=== PATIENT | male | born 1955 | race African-American/Black ===

== ENCOUNTER 2020-03-27 16:14 | IRF | payer MEDICARE, SELFPAY ==
[2020-03-27 16:10] VITALS: BP 170/82; PULSE 54; RESP 17; TEMP 36.3; O2SAT 99; BMI 32.4
--- NOTE | 2020-03-27 16:23 | ADMGEN ---
This patient, Patrick Garcia, was admitted to [facility] Room 225-01. Patient/family oriented to hospital policies and general routines including ID bracelet, bed and alarms, visiting hours, pain management, procedures, bathroom and other care routines, personal items, smoking policy, room service/diet, and visiting hours. Valuables list has been completed. Information on how to activate the Rapid Response Team has been discussed. Patient/Family are encouraged to report perceived risks to care and to ask questions if they do not understand what they are told or what they should do.
[2020-03-27 17:24] LABS: Glucose Point of Care 98 (65-105)
[2020-03-27] MEDS: PREGABALIN 50 MG CAPSULE PO (18:25)
[2020-03-27] MEDS: metFORMIN HCL XR 500 MG TAB.SR.24H PO (18:25)
[2020-03-27] MEDS: INSULIN DETEMIR 100 UNITS/ML 25 UNITS SUB-Q (20:35)
[2020-03-27] MEDS: MONTELUKAST SODIUM 10 MG TABLET PO (20:38)
[2020-03-27 21:08] LABS: Glucose Point of Care 206 (65-105)
[2020-03-27 22:00] VITALS: BP 147/60; PULSE 65; RESP 19; TEMP 36.9; O2SAT 98
[2020-03-28 04:49] LABS: Basophils Percent Auto 0.5 % (0.2-1.2); Eosinophils Absolute Auto 0.2 K/mm3 (0-0.3); Hematocrit 44.6 % (42.0-52.0); Immature Granulocyte Absolute 0.03 K/mm3 (0.00-0.031); Immature Granulocyte Percent A 0.5 % (0-0.5); Lymphocytes Absolute Auto 1.01 K/mm3 (0.9-3.2); Lymphocytes Percent Auto 17.9 % (18.3-44.2); Mean Corpuscular HGB Conc 31.4 g/dl (32-36); Mean Corpuscular Hemoglobin 26.5 pg (26-34); Mean Corpuscular Volume 84.5 fl (80-100); Mean Platelet Volume 9.6 fl (7.4-10.4); Monocytes Absolute Auto 0.8 K/mm3 (0.1-0.6); Neutrophils Absolute Auto 3.6 K/mm3 (1.3-6.7); Neutrophils Percent Auto 64.1 % (45.5-73.1); Platelet Count Result 153 k/mm3 (150-375); Red Blood Count 5.28 M/mm3 (4.6-6.20); Red Cell Distribution Width 14.3 % (11.5-14.5); White Blood Count 5.6 K/mm3 (4.5-10.0)
[2020-03-28 05:02] LABS: Blood Urea Nitrogen 27 mg/dL (9-20); Calcium 9.3 mg/dL (8.4-10.2); Carbon Dioxide 28 mmol/L (22-30); Chloride 106 mmol/L (98-107); Cholesterol 144 mg/dL (0-200); Estimated CRCL calculation 76 ml/min; Estimated Glomerular Filt Rate > 60; Glucose 99 mg/dL (75-110); HDL Direct 28 mg/dL; Potassium 3.8 mmol/L (3.4-5.0); Sodium 139 mmol/L (137-145); Triglycerides 72 mg/dL (<150)
[2020-03-28 05:13] LABS: LDL Cholesterol Direct 86 mg/dL
[2020-03-28 06:00] VITALS: BP 149/69; PULSE 54; RESP 18; TEMP 36.4; O2SAT 99
[2020-03-28 06:56] LABS: Glucose Point of Care 73 (65-105)
[2020-03-28] MEDS: metFORMIN HCL XR 500 MG TAB.SR.24H PO ×2 (08:30→17:03)
[2020-03-28] MEDS: ROSUVASTATIN 10 MG TABLET 40 MG PO (09:27)
[2020-03-28] MEDS: PREGABALIN 50 MG CAPSULE PO ×3 (09:27→17:06)
[2020-03-28] MEDS: AMLODIPINE BESYLATE 5 MG TABLET 10 MG PO (09:27)
[2020-03-28] MEDS: CLOPIDOGREL BISULFATE 75 MG TABLET PO (09:27)
[2020-03-28] MEDS: FUROSEMIDE 40 MG TABLET PO (09:27)
[2020-03-28] MEDS: SPIRONOLACTONE 25 MG TABLET PO (09:28)
[2020-03-28] MEDS: INSULIN DETEMIR 100 UNITS/ML 25 UNITS SUB-Q ×2 (09:29→20:20)
[2020-03-28] MEDS: FLUTICASONE PROPIONATE 0.05% NA SPR 16 GM BTL (*BKC) 1 SPRAY NASAL (09:29)
[2020-03-28] MEDS: LORATADINE 10 MG TABLET PO (09:29)
--- NOTE | 2020-03-28 10:00 | WPDREHABHP ---
H&P: HPI History of Present Illness Chief complaint: CVA Narrative: Patrick Garcia is a 65 year old male HISTORY OF PRESENT ILLNESS: The patient's primary rehab impairment category is 0 1/stroke The etiologic diagnosis is acute left pontine infarction I saw this patient [id number] on March 28, 2020 at 10:30 a.m. The patient is a 65-year-old the male with past medical history of coronary artery disease status post PCI, hypertension, diabetes mellitus type 2, obstructive sleep apnea, and rheumatoid arthritis presented to [facility] on March 22, 2020 complaining of dizziness, gait imbalance, slurring of the speech and dysphagia. The patient reported waking up 2 days ago with symptoms. He was already taking Plavix and a statin. He is allergic to aspirin. He was continued on his home medication and further testing was ordered. Neurology was consulted. Initial head CT on March 22 showed no acute intracranial process. Hemoglobin A1c was 13 diabetic Education was consulted regarding elevated A1c. Repeat head CT on March 24, 2020 showed left paramedian pontine acute infarct. CTA revealed severe stenosis of the basilar artery at the level of the superior aspect of the pontine infarct with an incidental thyroid nodule finding. The patient needs to follow-up with the primary care physician to address the new thyroid nodule finding. No high-degree carotid stenosis shown carotid Doppler. Echocardiogram showed an ejection fraction 58% and no mural thrombus, valvular vegetation or PFO. Neurology recommended continuing Plavix and statin and evaluation by PT OT and speech. The patient will need vascular Neurology consult on an outpatient basis within 3 weeks. His blood pressure medication were decreased it to allow better perfusion with higher blood pressure. Physical examination continues to reveal impaired balance decreased gross motor controlled and right-sided hemiparesis. The patient has passed is swallowing study and will be on a regular consistency diet. The patient will be discharged to rehab on Lovenox for DVT prophylaxis. Therapy was initiated at the acute care facility and the patient transferred to us from [facility] on March 27, 2020 on FALLS OR SURGERIES: The patient has had no major surgeries in the 100 days prior to admission. They had falls in the past year. They had no falls with injury in the past year. PAST MEDICAL HISTORY: congestive heart failure, rheumatoid arthritis, hyperlipidemia, hypertension, osteoarthritis, tension headache. PAST SURGICAL HISTORY: PCI SOCIAL HISTORY: the patient lives with his 13-year-old son in a 1 level house with the [employer] tree. He was completely independent and driving prior. He had no assistive device. Patient fell on March 22, 2020 at the hospital. No major surgeries in the past and days. Never smoker no alcohol or drug abuse FAMILY HISTORY: mother with diabetes mellitus hypertension and rheumatoid arthritis. Father with heart disease hypertension. Brother with hypertension. Family history of osteoarthritis PRIOR LEVEL OF FUNCTION: Eating was INDEPENDENT Oral Care was INDEPENDENT Toileting Hygiene was INDEPENDENT Shower/Bathing was INDEPENDENT Upper Body Dressing was INDEPENDENT Lower Body Dressing was INDEPENDENT Donning/[place] Footwear was INDEPENDENT Rolling Left and Right was INDEPENDENT Sit to Lying was INDEPENDENT Lying to Sitting was INDEPENDENT Sit to Stand was INDEPENDENT Bed to Chair Transfers was INDEPENDENT Toilet Transfers was INDEPENDENT Walking was INDEPENDENT 999 feet with NO DEVICE Wheelchair Mobility was NOT APPLICABLE PRIOR TO ADMISSION Stairs were INDEPENDENT CURRENT LEVEL OF FUNCTION: Eating was independent Oral Care was supervision or touch assistance Toileting Hygiene was substantial/maximal assistance Shower/Bathing was substantial/maximal assist Upper Body Dressing was partial/moderate assistance Lower Body D
[2020-03-28 11:21] LABS: Glucose Point of Care 223 (65-105)
[2020-03-28 12:14] VITALS: BMI 32.4
[2020-03-28] MEDS: INSULIN ASPART (*BKC) 100 UNITS/ML SUB-Q (12:27)
[2020-03-28] MEDS: ENOXAPARIN 40 MG/0.4 ML SYRINGE SUB-Q (12:28)
[2020-03-28 14:00] VITALS: BP 159/63; PULSE 68; RESP 20; TEMP 36.6; O2SAT 98
[2020-03-28 17:26] LABS: Glucose Point of Care 147 (65-105)
--- NOTE | 2020-03-28 17:28 | PC.NURSE ---
spoke to patient regarding jardiance this shift. pt states his son was going to look for medication and if he found it he would bring it to us. updated.
[2020-03-28] MEDS: MONTELUKAST SODIUM 10 MG TABLET PO (20:23)
[2020-03-28 21:24] VITALS: BP 145/72; PULSE 59; RESP 16; TEMP 36.1; O2SAT 99
[2020-03-28 21:56] LABS: Glucose Point of Care 230 (65-105)
[2020-03-29 06:00] VITALS: BP 134/76; PULSE 96; RESP 16; TEMP 36.5; O2SAT 98
[2020-03-29 07:03] LABS: Glucose Point of Care 80 (65-105)
[2020-03-29] MEDS: FLUTICASONE PROPIONATE 0.05% NA SPR 16 GM BTL (*BKC) 1 SPRAY NASAL (09:16)
[2020-03-29] MEDS: PREGABALIN 50 MG CAPSULE PO ×3 (09:17→17:21)
[2020-03-29] MEDS: ENOXAPARIN 40 MG/0.4 ML SYRINGE SUB-Q (09:17)
[2020-03-29] MEDS: FUROSEMIDE 40 MG TABLET PO (09:17)
[2020-03-29] MEDS: SPIRONOLACTONE 25 MG TABLET PO (09:17)
[2020-03-29] MEDS: AMLODIPINE BESYLATE 5 MG TABLET 10 MG PO (09:17)
[2020-03-29] MEDS: LORATADINE 10 MG TABLET PO (09:17)
[2020-03-29] MEDS: ROSUVASTATIN 10 MG TABLET 40 MG PO (09:17)
[2020-03-29] MEDS: CLOPIDOGREL BISULFATE 75 MG TABLET PO (09:17)
[2020-03-29] MEDS: metFORMIN HCL XR 500 MG TAB.SR.24H 1000 MG PO (09:30)
[2020-03-29] MEDS: INSULIN DETEMIR 100 UNITS/ML 25 UNITS SUB-Q ×2 (09:34→20:34)
--- NOTE | 2020-03-29 10:46 | RPD ---
INDIVIDUALIZED PLAN OF CARE FOR Patrick Garcia Brief Synthesis of Pre-Admission Screen, Post-Admission Evaluation and Therapy Evaluations: The patient presents to rehab with acute left pontine infarction. Comorbidities include congestive heart failure, rheumatoid arthritis, hyperlipidemia, hypertension, osteoarthritis, tension headache, gait instability, impaired balance, uncontrolled diabetes mellitus, mild troponemia, obstructive sleep apnea, severe basilar artery stenosis, 1.7 cm thyroid nodule. The patient requires physician services for neurology services, medical oversight, and coordination of care. Emotional needs will be monitored as depression is a common sequelae of stroke. The patient needs physician monitoring and treatment of hypertension, diabetes mellitus, monitoring for adverse reactions to new medications, monitoring of infection, and pain control. The patient requires nursing services for frequent neuro checks, anticoagulation therapy, medication management and education, pressure relief and skin care management, monitoring of labs, diabetes management and education, and fall/safety precautions. Deficits include:ADLs, Balance, Endurance, Family Training/Education, Mobility, Pain Management, Safety, Strength, Transfers Director Of Security/Case Management for: Discharge Planning and Patient/Family Counseling Physical Therapy: 5 days per week for 90 minutes. Treatments may include: Therapeutic Exercise, Gait Training, Neuromuscular Re-education, Transfer Training, Community Reintegration, Bed Mobility, Patient/Family Education, Wheelchair Mobility Group Therapy/Concurrent Therapy Rationales: -Improve attention span during functional activities in a distracted environment. -Enhance problem solving and/or adequate judgment skills during functional activities in a distracted environment. -Promote increased safety awareness in a distracted environment to reduce fall risk with functional tasks, transfers, and ambulation to allow a more safe, self-sufficient return to the home environment. -Improve dynamic balance skills to promote safety and independence with functional activities in a distracted environment for maximum gain. Occupational Therapy: 5 days per week for 90 minutes. Treatments may include: Therapeutic Exercise, Therapeutic Activity, Cognitive Training, Self-Care Transfer Training, Community Reintegration, Home Management, Patient/Family Education, Wheelchair Mobility Training, Energy Conservation Training Group Therapy/Concurrent Therapy Rationales: -Allow therapist to observe and teach generalization and carry-over of skills learned in individual therapy. -Enhance problem solving and sequencing skills during therapeutic activities in a distracted environment. -Promote increased safety awareness in a realistic setting to reduce fall risk with functional tasks due to visual and verbal distractions. -Increase functional level with ADLs, ADL transfers and use of adaptive equipment through therapeutic activities with others while promoting safety to allow a more safe, self-sufficient return home. Medical Prognosis: Good Anticipated Length of Stay: 12 days Rehab Goals: Eating Goal: 06-Independent Oral Hygiene Goal: 06-Independent Toileting Hygiene Goal: 06-Independent Shower/Bathe Self Goal: 04-Supervision or Touching Assistance Upper Body Dressing Goal: 05-Setup or Clean Up Assistance Lower Body Dressing Goal: 05-Setup or Clean Up Assistance Putting On/Taking Off Footwear Goal: 05-Setup or Clean Up Assistance Rolling Left and Right Goal: 06-Independent Sit to Lying Goal: 06-Independent Lying to Sitting on Side of Bed Goal: 06-Independent Sit to Stand Goal: 06-Independent Chair/Geg-jj-Kyqqm Transfer Goal: 06-Independent Toilet Transfer Goal: 06-Independent Car Transfer Goal: 06-Independent Walk 10' Goal: 06-Independent Walk 50' with Two Turns Goal: 06-Independent Walk 150' Goal: 06-Independent Walk 10' on Uneven Surface Goal: 06-Independ
[2020-03-29 11:46] LABS: Glucose Point of Care 147 (65-105)
--- NOTE | 2020-03-29 13:59 | WPDNEURORHBP ---
Subjective Date/time seen: 03/29/20 13:59 Interval history: this 65-year-old gentleman is here after having had the brainstem stroke which has left him with the moderately severe right-sided hemiparesis with mild dysarthria otherwise no double vision no blurred vision or difficulty swallowing or eating denies any chest pain shortness of breath fever chills or sore throat he also does have underlying rheumatoid arthritis for which he is on methotrexate also is a diabetic and non month multiple anti diabetic medication Review of Systems Review of Systems: All systems reviewed & are unremarkable except as noted in HPI and below Functional Status Ambulation Ability Ability to Ambulate 10 Feet: Moderate Assistance X 1 Ability to Ambulate 50 Feet With 2 Turns: Moderate Assistance X 1 Ambulation Assistive Devices: Cane, Dajuan Transfers Ability Ability to Transfer In/Out of Chair: Moderate Assistance X 1 Exam Const: General: comfortable and no acute distress HENMT: General nose exam: Normal nares present Mouth: Yes moist mucous membranes Eyes: General: appearance normal, both eyes and all related structures Neck: Neck: supple and no JVD Resp: Effort & Inspection: normal respiratory effort Auscultation: clear to auscultation bilaterally Cardio: Rate: regular rate Rhythm: regular rhythm GI: GI Palp: Yes Soft to palpation Auscultation: normal bowel sounds Skin: General skin exam: normal color and no rashes or lesions noted Neuro: Other: patient is awake and alert and well oriented time place and person has a mild dysarthria and right-sided moderately severe hemiparesis with evidence of peripheral neuropathy Extrem: General: normal to inspection Psych: Mental Status: mental status grossly normal Objective Data Vital Signs Vital Signs: Vital Signs - 24 hr 03/28/20 14:00 03/28/20 21:24 03/29/20 06:00 Temperature 36.6 C 36.1 C L 36.5 C Pulse Rate 68 59 L 96 Respiratory Rate 20 16 16 Blood Pressure 159/63 H 145/72 H 134/76 Pulse Oximetry 98 99 98 Intake/Output Intake/Output: Intake & Output 03/26/20 03/27/20 03/28/20 03/29/20 23:59 23:59 23:59 23:59 Intake Total 240 720 480 Balance 240 720 480 Meds/Results Medications: Active Medications Generic Name Dose Route Start Last Admin Trade Name Freq PRN Reason Stop Dose Admin Hydrocodone Bitart/Acetaminophen 1 tab 03/27/20 17:06 03/28/20 17:04 [place] 7.5-325 Mg PO 1 tab BID PRN Administration Pain Amlodipine Besylate 10 mg 03/28/20 09:00 03/29/20 09:17 Norvasc PO 10 mg DAILY JOVITA Administration Clopidogrel Bisulfate 75 mg 03/28/20 09:00 03/29/20 09:17 Plavix PO 75 mg DAILY JOVITA Administration Dextrose 12.5 gm 03/27/20 16:32 Dextrose 50% Syringe IV PUSH PRN PRN Hypoglycemia Protocol Enoxaparin Sodium 40 mg 03/28/20 11:00 03/29/20 09:17 Lovenox SUB-Q 40 mg DAILY JOVITA Administration Fluticasone Propionate 1 spray 03/29/20 10:56 Flonase 0.05% Nasal [place] NASAL DAILY PRN seasonal allergies Furosemide 40 mg 03/28/20 09:00 03/29/20 09:17 Lasix Tablet PO 40 mg DAILY JOVITA Administration Glucagon 1 mg 03/27/20 16:32 Glucagon For Inj IM PRN PRN Hypoglycemia Protocol Glucose 15 gm 03/27/20 16:32 Glutose 15 PO PRN PRN Hypoglycemia Protocol Dextrose 1,000 mls @ 100 mls/hr 03/27/20 16:32 Dextrose 5% 1,000 Ml IVPB PRN PRN Hypoglycemia Protocol Insulin Aspart 4 - 8 units 03/28/20 08:00 03/29/20 11:43 Novolog SUB-Q Not Given TIDWM [facility] Protocol Insulin Detemir 25 units 03/27/20 21:00 03/29/20 09:34 Levemir SUB-Q 25 units Q12HR JOVITA Administration Loratadine 10 mg 03/28/20 09:00 03/29/20 09:17 Claritin PO 10 mg QAM JOVITA Administration Metformin HCl 1,000 mg 03/29/20 08:00 03/29/20 09:30 Glucophage Xr PO 1,000 mg DAILY@0800 JOVITA Administration Methotrexat
[2020-03-29 14:00] VITALS: BP 149/69; PULSE 64; RESP 16; TEMP 36.1; O2SAT 98
[2020-03-29 17:42] LABS: Glucose Point of Care 125 (65-105)
[2020-03-29] MEDS: MONTELUKAST SODIUM 10 MG TABLET PO (20:34)
[2020-03-29 21:39] LABS: Glucose Point of Care 236 (65-105)
[2020-03-29 22:00] VITALS: BP 149/79; PULSE 68; RESP 16; TEMP 36.4; O2SAT 100
[2020-03-30 06:00] VITALS: BP 149/69; PULSE 60; RESP 18; TEMP 36.5; O2SAT 98
[2020-03-30 06:51] LABS: Glucose Point of Care 127 (65-105)
[2020-03-30 08:00] VITALS: PULSE 60; RESP 18; O2SAT 98
[2020-03-30] MEDS: CLOPIDOGREL BISULFATE 75 MG TABLET PO (09:35)
[2020-03-30] MEDS: ENOXAPARIN 40 MG/0.4 ML SYRINGE SUB-Q (09:35)
[2020-03-30] MEDS: LORATADINE 10 MG TABLET PO (09:36)
[2020-03-30] MEDS: FUROSEMIDE 40 MG TABLET PO (09:36)
[2020-03-30] MEDS: AMLODIPINE BESYLATE 5 MG TABLET 10 MG PO (09:36)
[2020-03-30] MEDS: metFORMIN HCL XR 500 MG TAB.SR.24H 1000 MG PO (09:36)
[2020-03-30] MEDS: INSULIN DETEMIR 100 UNITS/ML 25 UNITS SUB-Q ×2 (09:37→20:49)
[2020-03-30] MEDS: SPIRONOLACTONE 25 MG TABLET PO (09:38)
[2020-03-30] MEDS: ROSUVASTATIN 10 MG TABLET 40 MG PO (09:38)
[2020-03-30] MEDS: PREGABALIN 50 MG CAPSULE PO ×3 (09:40→17:09)
--- NOTE | 2020-03-30 11:53 | PHAR ---
HOME MED VERIFIED JARDIANCE 25MG 1 TABLET DAILY EVERY MORNING
[2020-03-30 12:07] LABS: Glucose Point of Care 131 (65-105)
--- NOTE | 2020-03-30 12:47 | WPDNEURORHBP ---
Subjective Date/time seen: S/P brainstem stroke with sever right hemiparesis ,dysarthria and underlying Rheumatoid arthritis,has no visual or swallowing difficulties Review of Systems Review of Systems: All systems reviewed & are unremarkable except as noted in HPI and below Functional Status Ambulation Ability Ability to Ambulate 10 Feet: Moderate Assistance X 1 Ability to Ambulate 50 Feet With 2 Turns: Moderate Assistance X 1 Ambulation Assistive Devices: Walker, Dajuan Transfers Ability Ability to Transfer In/Out of Chair: Moderate Assistance X 1 Exam Const: General: cooperative, comfortable and no acute distress HENMT: Head: normal to inspection General nose exam: No nasal discharge present Mouth: Yes Normal oral and palatal mucosa present Eyes: General: appearance normal, both eyes and all related structures Neck: Neck: full ROM Resp: Effort & Inspection: normal respiratory effort Auscultation: clear to auscultation bilaterally Cardio: Rate: regular rate Rhythm: regular rhythm GI: Auscultation: normal bowel sounds Skin: General skin exam: normal color and no rashes or lesions noted Neuro: General: patient oriented x3 Cranial nerves: Yes Equal, round and reactive pupils present, Yes Nystagmus not present and Yes Normal hearing present Cognition (Neuro): normal cognition Speech: dysarthria Gait exam (Neuro): Unable to assess gait Motor exam (neuro): Abnormal motor strength present (right hemiparesis) Sensory Exam: Abnormal lower extremity sensory exam (decreased distally) Psych: Appearance: grossly normal Objective Data Vital Signs Vital Signs: Vital Signs - 24 hr 03/29/20 14:00 03/29/20 22:00 03/30/20 06:00 Temperature 36.1 C L 36.4 C 36.5 C Pulse Rate 64 68 60 Respiratory Rate 16 16 18 Blood Pressure 149/69 H 149/79 H 149/69 H Pulse Oximetry 98 100 98 03/30/20 08:00 Temperature Pulse Rate 60 Respiratory Rate 18 Blood Pressure Pulse Oximetry 98 Intake/Output Intake/Output: Intake & Output 03/27/20 03/28/20 03/29/20 03/30/20 23:59 23:59 23:59 23:59 Intake Total 240 720 720 240 Balance 240 720 720 240 Meds/Results Medications: Active Medications Generic Name Dose Route Start Last Admin Trade Name Freq PRN Reason Stop Dose Admin Hydrocodone Bitart/Acetaminophen 1 tab 03/27/20 17:06 03/28/20 17:04 [place] 7.5-325 Mg PO 1 tab BID PRN Administration Pain Amlodipine Besylate 10 mg 03/28/20 09:00 03/30/20 09:36 Norvasc PO 10 mg DAILY JOVITA Administration Clopidogrel Bisulfate 75 mg 03/28/20 09:00 03/30/20 09:35 Plavix PO 75 mg DAILY JOVITA Administration Dextrose 12.5 gm 03/27/20 16:32 Dextrose 50% Syringe IV PUSH PRN PRN Hypoglycemia Protocol Enoxaparin Sodium 40 mg 03/28/20 11:00 03/30/20 09:35 Lovenox SUB-Q 40 mg DAILY JOVITA Administration Fluticasone Propionate 1 spray 03/29/20 10:56 Flonase 0.05% Nasal [place] NASAL DAILY PRN seasonal allergies Furosemide 40 mg 03/28/20 09:00 03/30/20 09:36 Lasix Tablet PO 40 mg DAILY JOVITA Administration Glucagon 1 mg 03/27/20 16:32 Glucagon For Inj IM PRN PRN Hypoglycemia Protocol Glucose 15 gm 03/27/20 16:32 Glutose 15 PO PRN PRN Hypoglycemia Protocol Dextrose 1,000 mls @ 100 mls/hr 03/27/20 16:32 Dextrose 5% 1,000 Ml IVPB PRN PRN Hypoglycemia Protocol Insulin Aspart 4 - 8 units 03/28/20 08:00 03/30/20 09:37 Novolog SUB-Q Not Given TIDWM JOVITA Protocol Insulin Detemir 25 units 03/27/20 21:00 03/30/20 09:37 Levemir SUB-Q 25 units Q12HR JOVITA Administration Loratadine 10 mg 03/28/20 09:00 03/30/20 09:36 Claritin PO 10 mg QAM JOVITA Administration Metformin HCl 1,000 mg 03/29/20 08:00 03/30/20 09:36 Glucophage Xr PO 1,000 mg DAILY@0800 JOVITA Administration Methotrexate 20 mg 04/01/20 09:00 Methotrexate Tab (*Chemo) PO Mo@090
[2020-03-30 14:00] VITALS: BP 142/62; PULSE 64; RESP 20; TEMP 36.3; O2SAT 97
[2020-03-30 16:56] LABS: Glucose Point of Care 148 (65-105)
[2020-03-30] MEDS: MONTELUKAST SODIUM 10 MG TABLET PO (20:41)
[2020-03-30 21:18] LABS: Glucose Point of Care 228 (65-105)
[2020-03-30 22:00] VITALS: BP 149/60; PULSE 58; RESP 16; TEMP 35.9; O2SAT 98
[2020-03-31 06:00] VITALS: BP 146/64; PULSE 57; RESP 16; TEMP 36; O2SAT 97
[2020-03-31 06:37] LABS: Glucose Point of Care 103 (65-105)
[2020-03-31 08:00] VITALS: PULSE 57; RESP 16; O2SAT 97
[2020-03-31] MEDS: CLOPIDOGREL BISULFATE 75 MG TABLET PO (09:05)
[2020-03-31] MEDS: ENOXAPARIN 40 MG/0.4 ML SYRINGE SUB-Q (09:06)
[2020-03-31] MEDS: AMLODIPINE BESYLATE 5 MG TABLET 10 MG PO (09:06)
[2020-03-31] MEDS: metFORMIN HCL XR 500 MG TAB.SR.24H 1000 MG PO (09:06)
[2020-03-31] MEDS: FUROSEMIDE 40 MG TABLET PO (09:07)
[2020-03-31] MEDS: LORATADINE 10 MG TABLET PO (09:07)
[2020-03-31] MEDS: SPIRONOLACTONE 25 MG TABLET PO (09:08)
[2020-03-31] MEDS: ROSUVASTATIN 10 MG TABLET 40 MG PO (09:08)
[2020-03-31] MEDS: PREGABALIN 50 MG CAPSULE PO ×3 (09:11→17:36)
[2020-03-31] MEDS: INSULIN DETEMIR 100 UNITS/ML 25 UNITS SUB-Q ×2 (09:13→20:46)
[2020-03-31 11:54] LABS: Glucose Point of Care 119 (65-105)
[2020-03-31 14:00] VITALS: BP 129/67; PULSE 72; RESP 20; TEMP 36.3; O2SAT 98
[2020-03-31 17:06] LABS: Glucose Point of Care 81 (65-105)
[2020-03-31] MEDS: MONTELUKAST SODIUM 10 MG TABLET PO ×2 (20:02→20:46)
[2020-03-31 20:58] LABS: Glucose Point of Care 120 (65-105)
[2020-03-31 22:00] VITALS: BP 137/76; PULSE 63; RESP 14; TEMP 36.9; O2SAT 99
[2020-04-01 05:16] LABS: Glucose Point of Care 114 (65-105)
[2020-04-01 06:00] VITALS: BP 144/82; PULSE 58; RESP 14; TEMP 36.8; O2SAT 99
[2020-04-01] MEDS: ENOXAPARIN 40 MG/0.4 ML SYRINGE SUB-Q (09:53)
[2020-04-01] MEDS: METHOTREXATE 2.5 MG TAB (*CHEMO) 20 MG PO (09:53)
[2020-04-01] MEDS: AMLODIPINE BESYLATE 5 MG TABLET 10 MG PO (09:54)
[2020-04-01] MEDS: metFORMIN HCL XR 500 MG TAB.SR.24H 1000 MG PO (09:54)
[2020-04-01] MEDS: FUROSEMIDE 40 MG TABLET PO (09:54)
[2020-04-01] MEDS: CLOPIDOGREL BISULFATE 75 MG TABLET PO (09:54)
[2020-04-01] MEDS: LORATADINE 10 MG TABLET PO (09:55)
[2020-04-01] MEDS: SPIRONOLACTONE 25 MG TABLET PO (09:56)
[2020-04-01] MEDS: ROSUVASTATIN 10 MG TABLET 40 MG PO (09:56)
[2020-04-01] MEDS: INSULIN DETEMIR 100 UNITS/ML 25 UNITS SUB-Q ×2 (09:57→20:55)
[2020-04-01] MEDS: PREGABALIN 50 MG CAPSULE PO ×3 (10:05→17:24)
[2020-04-01 12:00] LABS: Glucose Point of Care 202 (65-105)
[2020-04-01 14:00] VITALS: BP 140/81; PULSE 72; RESP 18; TEMP 36.4; O2SAT 100
--- NOTE | 2020-04-01 14:17 | PCDIET ---
Nutrition Follow-Up Complete: Nutrition Diagnosis: Altered nutrition related labs related to diabetes mellitus as evidenced by HgbA1C of 14%. Nutrition Goal: Patient will continue to consume 75% of meals or greater. Goal met. Patient consuming 100% of meals on diabetic diet which is appropriate with addition of heart healthy component. Last recorded weight is 102.6 kg. Recommend obtaining new weight. Bowel Motility: Last BM was 03/28/20. Confirmed with aid, Crystal, over phone who will notify RN. Labs Reviewed: Glu (202) Meds Noted: Methotrexate, Lasix, Novolog, Levemir, Glucophage Additional Notes: No documented skin breakdown. If medically appropriate, would consider folic acid supplementation. Will continue to monitor with same goal. Nutrition Monitoring and Evaluation: Follow up in 7 days.
[2020-04-01 15:13] LABS: Glucose Point of Care 124 (65-105)
[2020-04-01 16:52] LABS: Glucose Point of Care 97 (65-105)
--- NOTE | 2020-04-01 17:53 | WPDNEURORHBP ---
Subjective Date/time seen: Brain stem stroke withright hemiparesis and rheumatoid /11/20 17:53 Functional Status Ambulation Ability Ability to Ambulate 10 Feet: Moderate Assistance X 1 Ability to Ambulate 50 Feet With 2 Turns: Moderate Assistance X 1 Ambulation Assistive Devices: Walker, Wheeled Transfers Ability Ability to Transfer In/Out of Chair: Minimum Assistance X 1 Exam Const: General: healthy appearing, comfortable and no acute distress Limitations: no limitations HENMT: Head: normal to inspection Eyes: General: appearance normal, both eyes and all related structures Neck: Neck: full ROM Resp: Effort & Inspection: normal respiratory effort Auscultation: clear to auscultation bilaterally Cardio: Rate: regular rate Rhythm: regular rhythm Skin: General skin exam: no rashes or lesions noted Neuro: General: oriented to person, oriented to place, oriented to time, patient oriented x3 and moves all extremities Cranial nerves: Yes Equal, round and reactive pupils present Speech: Abnormal speech present (dysarthric) Gait exam (Neuro): Unable to assess gait Motor exam (neuro): Abnormal motor strength present Plantar Reflex Responses: downgoing: left and upgoing (positive Babinski): right Psych: Appearance: grossly normal Objective Data Vital Signs Vital Signs: Vital Signs - 24 hr 03/31/20 22:00 04/01/20 06:00 04/01/20 14:00 Temperature 36.9 C 36.8 C 36.4 C L Pulse Rate 63 58 L 72 Respiratory Rate 14 14 18 Blood Pressure 137/76 144/82 H 140/81 Pulse Oximetry 99 99 100 Intake/Output Intake/Output: Intake & Output 03/29/20 03/30/20 03/31/20 04/01/20 23:59 23:59 23:59 23:59 Intake Total 720 720 960 840 Balance 720 720 960 840 Meds/Results Medications: Active Medications Generic Name Dose Route Start Last Admin Trade Name Freq PRN Reason Stop Dose Admin Hydrocodone Bitart/Acetaminophen 1 tab 03/27/20 17:06 04/01/20 10:19 [place] 7.5-325 Mg PO 1 tab BID PRN Administration Pain Amlodipine Besylate 10 mg 03/28/20 09:00 04/01/20 09:54 Norvasc PO 10 mg DAILY JOVITA Administration Bisacodyl 5 mg 04/02/20 09:00 Dulcolax Tab PO QAM JOVITA Clopidogrel Bisulfate 75 mg 03/28/20 09:00 04/01/20 09:54 Plavix PO 75 mg DAILY JOVITA Administration Dextrose 12.5 gm 03/27/20 16:32 Dextrose 50% Syringe IV PUSH PRN PRN Hypoglycemia Protocol Enoxaparin Sodium 40 mg 03/28/20 11:00 04/01/20 09:53 Lovenox SUB-Q 40 mg DAILY JOVITA Administration Fluticasone Propionate 1 spray 03/29/20 10:56 Flonase 0.05% Nasal [place] NASAL DAILY PRN seasonal allergies Furosemide 40 mg 03/28/20 09:00 04/01/20 09:54 Lasix Tablet PO 40 mg DAILY JOVITA Administration Glucagon 1 mg 03/27/20 16:32 Glucagon For Inj IM PRN PRN Hypoglycemia Protocol Glucose 15 gm 03/27/20 16:32 Glutose 15 PO PRN PRN Hypoglycemia Protocol Dextrose 1,000 mls @ 100 mls/hr 03/27/20 16:32 Dextrose 5% 1,000 Ml IVPB PRN PRN Hypoglycemia Protocol Insulin Aspart 4 - 8 units 03/28/20 08:00 04/01/20 17:16 Novolog SUB-Q Not Given TIDWM JOVITA Protocol Insulin Detemir 25 units 03/27/20 21:00 04/01/20 09:57 Levemir SUB-Q 25 units Q12HR JOVITA Administration Loratadine 10 mg 03/28/20 09:00 04/01/20 09:55 Claritin PO 10 mg QAM JOVITA Administration Metformin HCl 1,000 mg 03/29/20 08:00 04/01/20 09:54 Glucophage Xr PO 1,000 mg DAILY@0800 JOVITA Administration Methotrexate 20 mg 04/01/20 09:00 04/01/20 09:53 Methotrexate Tab (*Chemo) PO 20 mg Mo@0900 JOVITA Administration Montelukast Sodium 10 mg 03/27/20 21:00 03/31/20 20:46 Singulair PO 10 mg HS JOVITA Administration Pregabalin 50 mg 03/27/20 17:00 04/01/20 17:24 Lyrica PO 50 mg TID JOVITA Administration Rosuvastatin Calcium 40 mg 03/28/20 09:00 04/01/20 09:56 Crestor
[2020-04-01 21:21] LABS: Glucose Point of Care 184 (65-105)
[2020-04-01 22:00] VITALS: BP 127/60; PULSE 57; RESP 18; TEMP 36.3; O2SAT 97
[2020-04-02 06:00] VITALS: BP 118/55; PULSE 67; RESP 18; TEMP 37.1; O2SAT 96
[2020-04-02 08:00] VITALS: PULSE 67; RESP 18; O2SAT 96
[2020-04-02 08:08] LABS: Glucose Point of Care 182 (65-105)
[2020-04-02] MEDS: metFORMIN HCL XR 500 MG TAB.SR.24H 1000 MG PO (09:00)
[2020-04-02] MEDS: PREGABALIN 50 MG CAPSULE PO ×3 (09:00→17:35)
[2020-04-02] MEDS: BISACODYL 5 MG TABLET EC PO (09:00)
[2020-04-02] MEDS: ENOXAPARIN 40 MG/0.4 ML SYRINGE SUB-Q (09:00)
[2020-04-02] MEDS: CLOPIDOGREL BISULFATE 75 MG TABLET PO (09:00)
[2020-04-02] MEDS: ROSUVASTATIN 10 MG TABLET 40 MG PO (09:00)
[2020-04-02] MEDS: INSULIN DETEMIR 100 UNITS/ML 25 UNITS SUB-Q ×2 (09:00→20:45)
[2020-04-02] MEDS: SPIRONOLACTONE 25 MG TABLET PO (09:00)
[2020-04-02] MEDS: FUROSEMIDE 40 MG TABLET PO (09:00)
[2020-04-02] MEDS: AMLODIPINE BESYLATE 5 MG TABLET 10 MG PO (09:00)
[2020-04-02] MEDS: LORATADINE 10 MG TABLET PO (09:00)
--- NOTE | 2020-04-02 10:30 | PC.NURSE ---
scanned all 0900 meds and gave to patient and when going back into patient mar meds looked like not scanned. patient did take his 0900 meds and documented that meds were given by this nurse.
--- NOTE | 2020-04-02 11:49 | PC.NURSE ---
Pt. complain of slight chest tightness. Pain does not radiate to arms and does not radiate to neck. No nausea/vomiting. No hx of GI reflux. b/p 119/72. P. 88 R. 20 02 sats 95% on RA. call light within reach. will continue to monitor.
[2020-04-02 12:14] LABS: Glucose Point of Care 200 (65-105)
[2020-04-02 13:16] VITALS: BP 137/79; PULSE 79; O2SAT 97
[2020-04-02 14:00] VITALS: BP 137/79; PULSE 78; RESP 18; TEMP 36.5; O2SAT 98
--- NOTE | 2020-04-02 16:24 | WPDNEURORHBP ---
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 he denies any new complaints particularly denies any headache nausea vomiting chest pain shortness of breath fever chills or sore throat Review of Systems Review of Systems: All systems reviewed & are unremarkable except as noted in HPI and below Functional Status Ambulation Ability Ability to Ambulate 10 Feet: Minimum Assistance X 1 Ability to Ambulate 50 Feet With 2 Turns: Minimum Assistance X 1 Ambulation Assistive Devices: Walker, Wheeled Transfers Ability Ability to Transfer In/Out of Chair: Minimum Assistance X 1 Exam Const: General: comfortable and no acute distress HENMT: General nose exam: Normal nares present Mouth: Yes moist mucous membranes Eyes: General: appearance normal, both eyes and all related structures Neck: Neck: supple and no JVD Resp: Effort & Inspection: normal respiratory effort Auscultation: clear to auscultation bilaterally Cardio: Rate: regular rate Rhythm: regular rhythm GI: GI Palp: Yes Soft to palpation Auscultation: normal bowel sounds Skin: General skin exam: normal color and no rashes or lesions noted Neuro: Other: awake and alert with improving neurological deficit Extrem: General: normal to inspection Psych: Mental Status: mental status grossly normal Objective Data Vital Signs Vital Signs: Vital Signs - 24 hr 04/01/20 22:00 04/02/20 06:00 04/02/20 08:00 Temperature 36.3 C L 37.1 C Pulse Rate 57 L 67 67 Respiratory Rate 18 18 18 Blood Pressure 127/60 118/55 L Pulse Oximetry 97 96 96 04/02/20 13:16 04/02/20 14:00 Temperature 36.5 C Pulse Rate 79 78 Respiratory Rate 18 Blood Pressure 137/79 137/79 Pulse Oximetry 97 98 Intake/Output Intake/Output: Intake & Output 03/30/20 03/31/20 04/01/20 04/02/20 23:59 23:59 23:59 23:59 Intake Total 078 761 0719 720 Balance 614 558 2715 720 Meds/Results Medications: Active Medications Generic Name Dose Route Start Last Admin Trade Name Freq PRN Reason Stop Dose Admin Hydrocodone Bitart/Acetaminophen 1 tab 03/27/20 17:06 04/02/20 04:05 [place] 7.5-325 Mg PO 1 tab BID PRN Administration Pain Amlodipine Besylate 10 mg 03/28/20 09:00 04/02/20 09:00 Norvasc PO 10 mg DAILY JOVITA Administration Bisacodyl 5 mg 04/02/20 09:00 04/02/20 09:00 Dulcolax Tab PO 5 mg QAM JOVITA Administration Clopidogrel Bisulfate 75 mg 03/28/20 09:00 04/02/20 09:00 Plavix PO 75 mg DAILY JOVITA Administration Dextrose 12.5 gm 03/27/20 16:32 Dextrose 50% Syringe IV PUSH PRN PRN Hypoglycemia Protocol Enoxaparin Sodium 40 mg 03/28/20 11:00 04/02/20 09:00 Lovenox SUB-Q 40 mg DAILY JOVITA Administration Fluticasone Propionate 1 spray 03/29/20 10:56 Flonase 0.05% Nasal [place] NASAL DAILY PRN seasonal allergies Furosemide 40 mg 03/28/20 09:00 04/02/20 09:00 Lasix Tablet PO 40 mg DAILY JOVITA Administration Glucagon 1 mg 03/27/20 16:32 Glucagon For Inj IM PRN PRN Hypoglycemia Protocol Glucose 15 gm 03/27/20 16:32 Glutose 15 PO PRN PRN Hypoglycemia Protocol Dextrose 1,000 mls @ 100 mls/hr 03/27/20 16:32 Dextrose 5% 1,000 Ml IVPB PRN PRN Hypoglycemia Protocol Insulin Aspart 4 - 8 units 03/28/20 08:00 04/02/20 12:31 Novolog SUB-Q Not Given TIDWM JOVITA Protocol Insulin Detemir 25 units 03/27/20 21:00 04/02/20 09:00 Levemir SUB-Q 25 units Q12HR JOVITA Administration Loratadine 10 mg 03/28/20 09:00 04/02/20 09:00 Claritin PO 10 mg QAM JOVITA Administration Metformin HCl 1,000 mg 03/29/20 08:00 04/02/20 09:00 Glucophage Xr PO 1,000 mg DAILY@0800 JOVITA Administration Methotrexate 20 mg 04/01/20 09:00 04/01/20 09:53 Methotrexate Tab (*Chemo)
[2020-04-02 17:01] LABS: Glucose Point of Care 140 (65-105)
[2020-04-02 19:36] VITALS: PULSE 78; RESP 18; O2SAT 98
[2020-04-02 20:43] LABS: Glucose Point of Care 188 (65-105)
[2020-04-02] MEDS: MONTELUKAST SODIUM 10 MG TABLET PO (20:50)
[2020-04-02 22:00] VITALS: BP 150/81; PULSE 80; RESP 16; TEMP 36.4; O2SAT 97
[2020-04-03 06:00] VITALS: BP 152/78; PULSE 65; RESP 18; TEMP 36.2; O2SAT 98
[2020-04-03 06:59] LABS: Glucose Point of Care 92 (65-105)
[2020-04-03] MEDS: ROSUVASTATIN 10 MG TABLET 40 MG PO (08:47)
[2020-04-03] MEDS: ENOXAPARIN 40 MG/0.4 ML SYRINGE SUB-Q (08:47)
[2020-04-03] MEDS: AMLODIPINE BESYLATE 5 MG TABLET 10 MG PO (08:47)
[2020-04-03] MEDS: CLOPIDOGREL BISULFATE 75 MG TABLET PO (08:47)
[2020-04-03] MEDS: LORATADINE 10 MG TABLET PO (08:47)
[2020-04-03] MEDS: FUROSEMIDE 40 MG TABLET PO (08:48)
[2020-04-03] MEDS: INSULIN DETEMIR 100 UNITS/ML 25 UNITS SUB-Q ×2 (08:48→21:53)
[2020-04-03] MEDS: SPIRONOLACTONE 25 MG TABLET PO (08:48)
[2020-04-03] MEDS: PREGABALIN 50 MG CAPSULE PO ×3 (08:51→16:58)
--- NOTE | 2020-04-03 09:44 | PC.NURSE ---
Pt complaining of stomach cramping this morning. Pt refused laxative due to the cramping and also stated he ate poorly so he did not want to take his metformin or jardiance. updated.
[2020-04-03 11:36] LABS: Glucose Point of Care 159 (65-105)
[2020-04-03 14:00] VITALS: BP 144/83; PULSE 87; RESP 20; TEMP 36.8; O2SAT 98
--- NOTE | 2020-04-03 14:02 | WPDNEURORHBP ---
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 Fever chills or sore throat he denies also Review of Systems Review of Systems: All systems reviewed & are unremarkable except as noted in HPI and below Functional Status Ambulation Ability Ability to Ambulate 10 Feet: Minimum Assistance X 1 Ability to Ambulate 50 Feet With 2 Turns: Moderate Assistance X 1 Ambulation Assistive Devices: Walker, Wheeled Transfers Ability Ability to Transfer In/Out of Chair: Minimum Assistance X 1 Exam Const: General: comfortable and no acute distress HENMT: General nose exam: Normal nares present Mouth: Yes moist mucous membranes Eyes: General: appearance normal, both eyes and all related structures Neck: Neck: supple and no JVD Resp: Effort & Inspection: normal respiratory effort Auscultation: clear to auscultation bilaterally Cardio: Rate: regular rate Rhythm: regular rhythm GI: GI Palp: Yes Soft to palpation Auscultation: normal bowel sounds Skin: General skin exam: normal color and no rashes or lesions noted Neuro: Other: patient is awake and alert well oriented time place and person has normal speech and language functions improving right-sided hemiparesis overall is moving forward and improving as for as the neurological status is concerned Extrem: General: normal to inspection Psych: Mental Status: mental status grossly normal Objective Data Vital Signs Vital Signs: Vital Signs - 24 hr 04/02/20 19:36 04/02/20 22:00 04/03/20 06:00 Temperature 36.4 C 36.2 C L Pulse Rate 78 80 65 Respiratory Rate 18 16 18 Blood Pressure 150/81 H 152/78 H Pulse Oximetry 98 97 98 Intake/Output Intake/Output: Intake & Output 03/31/20 04/01/20 04/02/20 04/03/20 23:59 23:59 23:59 23:59 Intake Total 960 1080 960 480 Balance 960 1080 960 480 Meds/Results Medications: Active Medications Generic Name Dose Route Start Last Admin Trade Name Freq PRN Reason Stop Dose Admin Hydrocodone Bitart/Acetaminophen 1 tab 03/27/20 17:06 04/02/20 04:05 [place] 7.5-325 Mg PO 1 tab BID PRN Administration Pain Amlodipine Besylate 10 mg 03/28/20 09:00 04/03/20 08:47 Norvasc PO 10 mg DAILY JOVITA Administration Bisacodyl 5 mg 04/02/20 09:00 04/03/20 08:53 Dulcolax Tab PO Not Given QAM [facility] Clopidogrel Bisulfate 75 mg 03/28/20 09:00 04/03/20 08:47 Plavix PO 75 mg DAILY JOVITA Administration Dextrose 12.5 gm 03/27/20 16:32 Dextrose 50% Syringe IV PUSH PRN PRN Hypoglycemia Protocol Enoxaparin Sodium 40 mg 03/28/20 11:00 04/03/20 08:47 Lovenox SUB-Q 40 mg DAILY JOVITA Administration Fluticasone Propionate 1 spray 03/29/20 10:56 Flonase 0.05% Nasal [place] NASAL DAILY PRN seasonal allergies Furosemide 40 mg 03/28/20 09:00 04/03/20 08:48 Lasix Tablet PO 40 mg DAILY JOVIAT Administration Glucagon 1 mg 03/27/20 16:32 Glucagon For Inj IM PRN PRN Hypoglycemia Protocol Glucose 15 gm 03/27/20 16:32 Glutose 15 PO PRN PRN Hypoglycemia Protocol Dextrose 1,000 mls @ 100 mls/hr 03/27/20 16:32 Dextrose 5% 1,000 Ml IVPB PRN PRN Hypoglycemia Protocol Insulin Aspart 4 - 8 units 03/28/20 08:00 04/03/20 12:39 Novolog SUB-Q Not Given TIDWM [facility] Protocol Insulin Detemir 25 units 03/27/20 21:00 04/03/20 08:48 Levemir SUB-Q 25 units Q12HR JOVITA Administration Loratadine 10 mg 03/28/20 09:00 04/03/20 08:47 Claritin PO 10 mg QAM OJVITA Administration Metformin HCl 1,000 mg 03/29/20 08:00 04/03/20 08:48 Glucophage Xr PO Not Given DAILY@0800 [facility] Methotrexate 20 mg 04/01/20 09:00 04/01/20 09:53 Methotrex
[2020-04-03 16:42] LABS: Glucose Point of Care 140 (65-105)
[2020-04-03 22:00] VITALS: BP 146/82; PULSE 63; RESP 16; TEMP 36.1; O2SAT 99
[2020-04-03 22:24] LABS: Glucose Point of Care 124 (65-105)
[2020-04-04 05:38] LABS: Basophils Absolute Auto 0.1 K/mm3 (0.0-0.1); Eosinophils Absolute Auto 0.2 K/mm3 (0-0.3); Eosinophils Percent Auto 3.3 % (0-4.4); Hematocrit 47.2 % (42.0-52.0); Immature Granulocyte Absolute 0.01 K/mm3 (0.00-0.031); Immature Granulocyte Percent A 0.2 % (0-0.5); Lymphocytes Absolute Auto 1.11 K/mm3 (0.9-3.2); Lymphocytes Percent Auto 23.2 % (18.3-44.2); Mean Corpuscular HGB Conc 31.8 g/dl (32-36); Mean Corpuscular Hemoglobin 26.6 pg (26-34); Mean Corpuscular Volume 83.8 fl (80-100); Mean Platelet Volume 10.1 fl (7.4-10.4); Monocytes Absolute Auto 0.5 K/mm3 (0.1-0.6); Monocytes Percent Auto 11.1 % (2.6-8.5); Neutrophils Absolute Auto 2.9 K/mm3 (1.3-6.7); Neutrophils Percent Auto 61.2 % (45.5-73.1); Platelet Count Result 177 k/mm3 (150-375); Red Blood Count 5.63 M/mm3 (4.6-6.20); Red Cell Distribution Width 13.7 % (11.5-14.5); White Blood Count 4.8 K/mm3 (4.5-10.0)
[2020-04-04 05:45] LABS: Blood Urea Nitrogen 36 mg/dL (9-20); Carbon Dioxide 29 mmol/L (22-30); Chloride 100 mmol/L (98-107); Estimated CRCL calculation 64 ml/min; Estimated Glomerular Filt Rate > 60; Glucose 133 mg/dL (75-110); Sodium 137 mmol/L (137-145)
[2020-04-04 06:00] VITALS: BP 137/88; PULSE 75; RESP 18; TEMP 36.7; O2SAT 100
[2020-04-04 06:55] LABS: Glucose Point of Care 131 (65-105)
[2020-04-04] MEDS: INSULIN DETEMIR 100 UNITS/ML 25 UNITS SUB-Q ×2 (09:01→20:15)
[2020-04-04] MEDS: CYCLOBENZAPRINE HCL 5 MG TABLET PO (09:06)
[2020-04-04] MEDS: CLOPIDOGREL BISULFATE 75 MG TABLET PO (09:07)
[2020-04-04] MEDS: ROSUVASTATIN 10 MG TABLET 40 MG PO (09:07)
[2020-04-04] MEDS: FUROSEMIDE 40 MG TABLET PO (09:07)
[2020-04-04] MEDS: metFORMIN HCL XR 500 MG TAB.SR.24H 1000 MG PO (09:07)
[2020-04-04] MEDS: LORATADINE 10 MG TABLET PO (09:07)
[2020-04-04] MEDS: AMLODIPINE BESYLATE 5 MG TABLET 10 MG PO (09:07)
[2020-04-04] MEDS: SPIRONOLACTONE 25 MG TABLET PO (09:07)
[2020-04-04] MEDS: ENOXAPARIN 40 MG/0.4 ML SYRINGE SUB-Q (09:07)
[2020-04-04] MEDS: PREGABALIN 50 MG CAPSULE PO ×3 (09:08→16:45)
--- NOTE | 2020-04-04 09:09 | PC.NURSE ---
pt refused dulcolax tab this morning . aware.
[2020-04-04 11:47] LABS: Glucose Point of Care 229 (65-105)
[2020-04-04] MEDS: INSULIN ASPART (*BKC) 100 UNITS/ML SUB-Q (12:05)
[2020-04-04 14:00] VITALS: PULSE 77; RESP 20; TEMP 36.8; O2SAT 99
[2020-04-04 16:45] LABS: Glucose Point of Care 106 (65-105)
[2020-04-04 20:00] VITALS: PULSE 70; RESP 20; O2SAT 98
[2020-04-04 20:14] VITALS: BP 130/64; PULSE 70; RESP 20; TEMP 36.7; O2SAT 98
[2020-04-04 20:27] LABS: Glucose Point of Care 141 (65-105)
[2020-04-04 22:00] VITALS: BP 130/64; PULSE 70; RESP 20; TEMP 36.7; O2SAT 98
[2020-04-05 06:00] VITALS: BP 134/80; PULSE 71; RESP 18; TEMP 36.4; O2SAT 97
[2020-04-05 06:55] LABS: Glucose Point of Care 94 (65-105)
[2020-04-05] MEDS: ROSUVASTATIN 10 MG TABLET 40 MG PO (08:32)
[2020-04-05] MEDS: ENOXAPARIN 40 MG/0.4 ML SYRINGE SUB-Q (08:32)
[2020-04-05] MEDS: FUROSEMIDE 40 MG TABLET PO (08:32)
[2020-04-05] MEDS: SPIRONOLACTONE 25 MG TABLET PO (08:33)
[2020-04-05] MEDS: AMLODIPINE BESYLATE 5 MG TABLET 10 MG PO (08:33)
[2020-04-05] MEDS: metFORMIN HCL XR 500 MG TAB.SR.24H 1000 MG PO (08:33)
[2020-04-05] MEDS: INSULIN DETEMIR 100 UNITS/ML 25 UNITS SUB-Q ×2 (08:33→22:05)
[2020-04-05] MEDS: LORATADINE 10 MG TABLET PO (08:33)
[2020-04-05] MEDS: PREGABALIN 50 MG CAPSULE PO ×3 (08:33→17:22)
[2020-04-05] MEDS: CLOPIDOGREL BISULFATE 75 MG TABLET PO (08:33)
[2020-04-05 11:42] LABS: Glucose Point of Care 178 (65-105)
[2020-04-05 14:00] VITALS: BP 146/88; PULSE 83; RESP 20; TEMP 36.8; O2SAT 100
--- NOTE | 2020-04-05 14:29 | WPDNEURORHBP ---
Subjective Date/time seen: 04/05/20 14:29 Interval history: this 65-year-old gentleman is here after having had stroke home with right-sided weakness he is ambulating fairly well and walked almost 200 feet his dizziness is about stable no new complaints at least neurological complaints no headache nausea vomiting chest pain shortness of breath fever chills or sore throat Review of Systems Review of Systems: All systems reviewed & are unremarkable except as noted in HPI and below Functional Status Ambulation Ability Ability to Ambulate 10 Feet: Minimum Assistance X 1 Ability to Ambulate 50 Feet With 2 Turns: Minimum Assistance X 1 Ability to Ambulate 150 Feet: Moderate Assistance X 1 Ambulation Assistive Devices: Walker, Wheeled Transfers Ability Ability to Transfer In/Out of Chair: Minimum Assistance X 1 Exam Const: General: comfortable and no acute distress HENMT: General nose exam: Normal nares present Mouth: Yes moist mucous membranes Eyes: General: appearance normal, both eyes and all related structures Neck: Neck: supple and no JVD Resp: Effort & Inspection: normal respiratory effort Auscultation: clear to auscultation bilaterally Cardio: Rate: regular rate Rhythm: regular rhythm GI: GI Palp: Yes Soft to palpation Auscultation: normal bowel sounds Skin: General skin exam: normal color and no rashes or lesions noted Neuro: Other: patient remains awake alert and well oriented time place and person with normal speech limb function and improving neurological deficit Extrem: General: normal to inspection Psych: Mental Status: mental status grossly normal Objective Data Vital Signs Vital Signs: Vital Signs - 24 hr 04/04/20 20:00 04/04/20 20:14 04/04/20 22:00 Temperature 36.7 C 36.7 C Pulse Rate 70 70 70 Respiratory Rate 20 20 20 Blood Pressure 130/64 130/64 Pulse Oximetry 98 98 98 04/05/20 06:00 Temperature 36.4 C L Pulse Rate 71 Respiratory Rate 18 Blood Pressure 134/80 Pulse Oximetry 97 Intake/Output Intake/Output: Intake & Output 04/02/20 04/03/20 04/04/20 04/05/20 23:59 23:59 23:59 23:59 Intake Total 960 720 720 360 Balance 960 720 720 360 Meds/Results Medications: Active Medications Generic Name Dose Route Start Last Admin Trade Name Freq PRN Reason Stop Dose Admin Hydrocodone Bitart/Acetaminophen 1 tab 03/27/20 17:06 04/04/20 13:48 [place] 7.5-325 Mg PO 1 tab BID PRN Administration Pain Amlodipine Besylate 10 mg 03/28/20 09:00 04/05/20 08:33 Norvasc PO 10 mg DAILY JOVITA Administration Bisacodyl 5 mg 04/05/20 11:49 Dulcolax Tab PO QAM PRN constipation Clopidogrel Bisulfate 75 mg 03/28/20 09:00 04/05/20 08:33 Plavix PO 75 mg DAILY JOVITA Administration Cyclobenzaprine HCl 5 mg 04/04/20 08:31 04/04/20 09:06 Flexeril PO 5 mg QID PRN Administration Muscle Spasm Dextrose 12.5 gm 03/27/20 16:32 Dextrose 50% Syringe IV PUSH PRN PRN Hypoglycemia Protocol Enoxaparin Sodium 40 mg 03/28/20 11:00 04/05/20 08:32 Lovenox SUB-Q 40 mg DAILY JOVITA Administration Fluticasone Propionate 1 spray 03/29/20 10:56 Flonase 0.05% Nasal [place] NASAL DAILY PRN seasonal allergies Furosemide 40 mg 03/28/20 09:00 04/05/20 08:32 Lasix Tablet PO 40 mg DAILY JOVITA Administration Glucagon 1 mg 03/27/20 16:32 Glucagon For Inj IM PRN PRN Hypoglycemia Protocol Glucose 15 gm 03/27/20 16:32 Glutose 15 PO PRN PRN Hypoglycemia Protocol Dextrose 1,000 mls @ 100 mls/hr 03/27/20 16:32 Dextrose 5% 1,000 Ml IVPB PRN PRN Hypoglycemia Protocol Insulin Aspart 4 - 8 units 03/28/20 08:00 04/05/20 11:40 Novolog SUB-Q Not Given TIDWM [facility] Protocol Insulin Detemir 25 units 03/27/20 21:00 04/05/20 08:33 Levemir SUB-Q 25 units Q12HR JOVITA Administration Loratadine 10 mg 03/28/20 09:00 04/05/20 08:
[2020-04-05 16:52] LABS: Glucose Point of Care 117 (65-105)
[2020-04-05 20:00] VITALS: PULSE 76; RESP 19; O2SAT 98
[2020-04-05 22:00] VITALS: BP 131/74; PULSE 76; RESP 19; TEMP 36.9; O2SAT 98
[2020-04-05] MEDS: SENNOSIDES 8.6 MG TABLET PO (22:05)
[2020-04-05 22:31] LABS: Glucose Point of Care 170 (65-105)
[2020-04-06 06:00] VITALS: BP 133/70; PULSE 74; RESP 19; TEMP 36.8; O2SAT 98
[2020-04-06 07:34] LABS: Glucose Point of Care 110 (65-105)
[2020-04-06] MEDS: INSULIN DETEMIR 100 UNITS/ML 25 UNITS SUB-Q ×2 (08:35→20:45)
[2020-04-06] MEDS: AMLODIPINE BESYLATE 5 MG TABLET 10 MG PO (08:37)
[2020-04-06] MEDS: ROSUVASTATIN 10 MG TABLET 40 MG PO (08:37)
[2020-04-06] MEDS: metFORMIN HCL XR 500 MG TAB.SR.24H 1000 MG PO (08:38)
[2020-04-06] MEDS: LORATADINE 10 MG TABLET PO (08:38)
[2020-04-06] MEDS: FUROSEMIDE 40 MG TABLET PO (08:38)
[2020-04-06] MEDS: PREGABALIN 50 MG CAPSULE PO ×3 (08:38→17:15)
[2020-04-06] MEDS: CLOPIDOGREL BISULFATE 75 MG TABLET PO (08:38)
[2020-04-06] MEDS: ENOXAPARIN 40 MG/0.4 ML SYRINGE SUB-Q (08:38)
[2020-04-06] MEDS: SPIRONOLACTONE 25 MG TABLET PO (08:38)
[2020-04-06 11:50] LABS: Glucose Point of Care 115 (65-105)
[2020-04-06 14:00] VITALS: BP 130/71; PULSE 78; RESP 18; TEMP 36.4; O2SAT 97
[2020-04-06 16:53] LABS: Glucose Point of Care 160 (65-105)
--- NOTE | 2020-04-06 17:37 | WPDNEURORHBP ---
Subjective Date/time seen: 04/06/20 17:37 Interval history: this 65-year-old Afro [place] gentleman with multiple medical underlying issues is here because of the stroke affecting the right side of the body with which he is improving his able to walk several 100 feet and we had discontinued his DVT prophylaxis overall is improving and denies any new neurological symptoms and otherwise except that he has some tightness in the upper thighs bilaterally which is most likely related to the therapy has been receiving he denies any calf pain or calf tenderness at all and even the thighs are not tender to touch Review of Systems Review of Systems: All systems reviewed & are unremarkable except as noted in HPI and below Functional Status Ambulation Ability Ability to Ambulate 10 Feet: Minimum Assistance X 1 Ability to Ambulate 50 Feet With 2 Turns: Minimum Assistance X 1 Ability to Ambulate 150 Feet: Minimum Assistance X 1 Ambulation Assistive Devices: Walker, Wheeled Transfers Ability Ability to Transfer In/Out of Chair: Minimum Assistance X 1 Exam Const: General: comfortable and no acute distress HENMT: General nose exam: Normal nares present Mouth: Yes moist mucous membranes Eyes: General: appearance normal, both eyes and all related structures Neck: Neck: supple and no JVD Resp: Effort & Inspection: normal respiratory effort Auscultation: clear to auscultation bilaterally Cardio: Rate: regular rate Rhythm: regular rhythm GI: GI Palp: Yes Soft to palpation Auscultation: normal bowel sounds Skin: General skin exam: normal color and no rashes or lesions noted Neuro: Other: patient is awake and alert well oriented I place person dysarthria is improving right-sided hemiparesis is improving Extrem: General: normal to inspection Other: no tenderness in the calfs or the thighs except complains of spasms in the thighs Psych: Mental Status: mental status grossly normal Objective Data Vital Signs Vital Signs: Vital Signs - 24 hr 04/05/20 20:00 04/05/20 22:00 04/06/20 06:00 Temperature 36.9 C 36.8 C Pulse Rate 76 76 74 Respiratory Rate 19 19 19 Blood Pressure 131/74 133/70 Pulse Oximetry 98 98 98 04/06/20 14:00 Temperature 36.4 C Pulse Rate 78 Respiratory Rate 18 Blood Pressure 130/71 Pulse Oximetry 97 Intake/Output Intake/Output: Intake & Output 04/03/20 04/04/20 04/05/2016/20 23:59 23:59 23:59 23:59 Intake Total 720 720 840 480 Balance 720 720 840 480 Meds/Results Medications: Active Medications Generic Name Dose Route Start Last Admin Trade Name Freq PRN Reason Stop Dose Admin Hydrocodone Bitart/Acetaminophen 1 tab 03/27/20 17:06 04/06/20 12:09 [place] 7.5-325 Mg PO 1 tab BID PRN Administration Pain Amlodipine Besylate 10 mg 03/28/20 09:00 04/06/20 08:37 Norvasc PO 10 mg DAILY JOVITA Administration Bisacodyl 5 mg 04/05/20 11:49 Dulcolax Tab PO QAM PRN constipation Clopidogrel Bisulfate 75 mg 03/28/20 09:00 04/06/20 08:38 Plavix PO 75 mg DAILY JOVITA Administration Cyclobenzaprine HCl 5 mg 04/04/20 08:31 04/04/20 09:06 Flexeril PO 5 mg QID PRN Administration Muscle Spasm Dextrose 12.5 gm 03/27/20 16:32 Dextrose 50% Syringe IV PUSH PRN PRN Hypoglycemia Protocol Fluticasone Propionate 1 spray 03/29/20 10:56 Flonase 0.05% Nasal [place] NASAL DAILY PRN seasonal allergies Furosemide 40 mg 03/28/20 09:00 04/06/20 08:38 Lasix Tablet PO 40 mg DAILY JOVITA Administration Glucagon 1 mg 03/27/20 16:32 Glucagon For Inj IM PRN PRN Hypoglycemia Protocol Glucose 15 gm 03/27/20 16:32 Glutose 15 PO PRN PRN Hypoglycemia Protocol Dextrose 1,000 mls @ 100 mls/hr 03/27/20 16:32 Dextrose 5% 1,000 Ml IVPB PRN PRN Hypoglycemia Protocol Insulin Aspart 4 - 8 units 03/28/20 08:00 04/06/20 17:05 Novolog SUB-Q Not Given
[2020-04-06] MEDS: SENNOSIDES 8.6 MG TABLET PO (20:43)
[2020-04-06 21:25] LABS: Glucose Point of Care 177 (65-105)
[2020-04-06 22:00] VITALS: BP 123/76; PULSE 72; RESP 18; TEMP 36.5; O2SAT 98
[2020-04-07 06:00] VITALS: BP 137/78; PULSE 65; RESP 18; TEMP 35.9; O2SAT 97
[2020-04-07 07:02] LABS: Glucose Point of Care 79 (65-105)
[2020-04-07] MEDS: metFORMIN HCL XR 500 MG TAB.SR.24H 1000 MG PO (08:59)
[2020-04-07] MEDS: INSULIN DETEMIR 100 UNITS/ML 25 UNITS SUB-Q ×2 (08:59→21:19)
[2020-04-07] MEDS: AMLODIPINE BESYLATE 5 MG TABLET 10 MG PO (09:00)
[2020-04-07] MEDS: SPIRONOLACTONE 25 MG TABLET PO (09:00)
[2020-04-07] MEDS: LORATADINE 10 MG TABLET PO (09:00)
[2020-04-07] MEDS: CLOPIDOGREL BISULFATE 75 MG TABLET PO (09:00)
[2020-04-07] MEDS: PREGABALIN 50 MG CAPSULE PO ×3 (09:00→17:54)
[2020-04-07] MEDS: FUROSEMIDE 40 MG TABLET PO (09:00)
[2020-04-07] MEDS: ROSUVASTATIN 10 MG TABLET 40 MG PO (09:01)
[2020-04-07 12:19] LABS: Glucose Point of Care 117 (65-105)
[2020-04-07 14:00] VITALS: BP 122/70; PULSE 88; RESP 18; TEMP 36.4; O2SAT 99
--- NOTE | 2020-04-07 17:24 | WPDNEURORHBP ---
Subjective Date/time seen: 04/07/20 17:24 Interval history: patient's right-sided weakness is improving he is doing fairly well no other neurological symptoms described no headache nausea vomiting chest pain shortness of breath fever chills or sore throat Review of Systems Review of Systems: All systems reviewed & are unremarkable except as noted in HPI and below Functional Status Ambulation Ability Ability to Ambulate 10 Feet: Minimum Assistance X 1 Ability to Ambulate 50 Feet With 2 Turns: Minimum Assistance X 1 Ability to Ambulate 150 Feet: Minimum Assistance X 1 Ambulation Assistive Devices: Walker, Wheeled Transfers Ability Ability to Transfer In/Out of Chair: Minimum Assistance X 1 Exam Const: General: no acute distress and in distress HENMT: General nose exam: Normal nares present Mouth: Yes moist mucous membranes Eyes: General: appearance normal, both eyes and all related structures Neck: Neck: supple and no JVD Resp: Effort & Inspection: normal respiratory effort Auscultation: clear to auscultation bilaterally Cardio: Rate: regular rate Rhythm: regular rhythm GI: GI Palp: Yes Soft to palpation Auscultation: normal bowel sounds Skin: General skin exam: normal color and no rashes or lesions noted Neuro: Other: patient is awake alert will oriented to time place and person right-sided improved weakness is improving walking several 100 feet but still needing assistance Extrem: General: normal to inspection Psych: Mental Status: mental status grossly normal Objective Data Vital Signs Vital Signs: Vital Signs - 24 hr 04/06/20 22:00 04/07/20 06:00 04/07/20 14:00 Temperature 36.5 C 35.9 C L 36.4 C Pulse Rate 72 65 88 Respiratory Rate 18 18 18 Blood Pressure 123/76 137/78 122/70 Pulse Oximetry 98 97 99 Intake/Output Intake/Output: Intake & Output 04/04/20 04/05/20 04/06/20 04/07/20 23:59 23:59 23:59 23:59 Intake Total 720 840 720 960 Balance 720 840 720 960 Meds/Results Medications: Active Medications Generic Name Dose Route Start Last Admin Trade Name Freq PRN Reason Stop Dose Admin Hydrocodone Bitart/Acetaminophen 1 tab 03/27/20 17:06 04/07/20 14:45 [place] 7.5-325 Mg PO 1 tab BID PRN Administration Pain Amlodipine Besylate 10 mg 03/28/20 09:00 04/07/20 09:00 Norvasc PO 10 mg DAILY JOVITA Administration Bisacodyl 5 mg 04/05/20 11:49 Dulcolax Tab PO QAM PRN constipation Clopidogrel Bisulfate 75 mg 03/28/20 09:00 04/07/20 09:00 Plavix PO 75 mg DAILY JOVITA Administration Cyclobenzaprine HCl 5 mg 04/04/20 08:31 04/04/20 09:06 Flexeril PO 5 mg QID PRN Administration Muscle Spasm Dextrose 12.5 gm 03/27/20 16:32 Dextrose 50% Syringe IV PUSH PRN PRN Hypoglycemia Protocol Fluticasone Propionate 1 spray 03/29/20 10:56 Flonase 0.05% Nasal [place] NASAL DAILY PRN seasonal allergies Furosemide 40 mg 03/28/20 09:00 04/07/20 09:00 Lasix Tablet PO 40 mg DAILY JOVITA Administration Glucagon 1 mg 03/27/20 16:32 Glucagon For Inj IM PRN PRN Hypoglycemia Protocol Glucose 15 gm 03/27/20 16:32 Glutose 15 PO PRN PRN Hypoglycemia Protocol Dextrose 1,000 mls @ 100 mls/hr 03/27/20 16:32 Dextrose 5% 1,000 Ml IVPB PRN PRN Hypoglycemia Protocol Insulin Aspart 4 - 8 units 03/28/20 08:00 04/07/20 12:26 Novolog SUB-Q Not Given TIDWM JOVITA Protocol Insulin Detemir 25 units 03/27/20 21:00 04/07/20 08:59 Levemir SUB-Q 25 units Q12HR JOVITA Administration Loratadine 10 mg 03/28/20 09:00 04/07/20 09:00 Claritin PO 10 mg QAM JOVITA Administration Metformin HCl 1,000 mg 03/29/20 08:00 04/07/20 08:59 Glucophage Xr PO 1,000 mg DAILY@0800 JOVITA Administration Methotrexate 20 mg 04/01/20 09:00 04/01/20 09:53 Methotrexate Tab (*Chemo) PO 20 mg Mo@0900 JOVITA Administration Montelukast
[2020-04-07 17:32] LABS: Glucose Point of Care 152 (65-105)
[2020-04-07] MEDS: SENNOSIDES 8.6 MG TABLET PO (21:16)
[2020-04-07 21:43] LABS: Glucose Point of Care 145 (65-105)
[2020-04-07 22:00] VITALS: BP 131/75; PULSE 66; RESP 18; TEMP 36.6; O2SAT 99
[2020-04-08 06:00] VITALS: BP 133/78; PULSE 69; RESP 16; TEMP 36.3; O2SAT 95
[2020-04-08 06:29] LABS: Glucose Point of Care 77 (65-105)
[2020-04-08] MEDS: METHOTREXATE 2.5 MG TAB (*CHEMO) 20 MG PO (08:44)
[2020-04-08] MEDS: FUROSEMIDE 40 MG TABLET PO (08:45)
[2020-04-08] MEDS: CLOPIDOGREL BISULFATE 75 MG TABLET PO (08:45)
[2020-04-08] MEDS: AMLODIPINE BESYLATE 5 MG TABLET 10 MG PO (08:45)
[2020-04-08] MEDS: metFORMIN HCL XR 500 MG TAB.SR.24H 1000 MG PO (08:45)
[2020-04-08] MEDS: ROSUVASTATIN 10 MG TABLET 40 MG PO (08:45)
[2020-04-08] MEDS: SPIRONOLACTONE 25 MG TABLET PO (08:46)
[2020-04-08] MEDS: LORATADINE 10 MG TABLET PO (08:46)
[2020-04-08] MEDS: PREGABALIN 50 MG CAPSULE PO ×3 (08:46→17:17)
[2020-04-08] MEDS: INSULIN DETEMIR 100 UNITS/ML 25 UNITS SUB-Q ×2 (08:48→20:21)
--- NOTE | 2020-04-08 11:14 | WPDNEURORHBP ---
Subjective Date/time seen: 04/08/20 11:14 improving right sided weekness Review of Systems Review of Systems: All systems reviewed & are unremarkable except as noted in HPI and below Functional Status Ambulation Ability Ability to Ambulate 10 Feet: Minimum Assistance X 1 Ability to Ambulate 50 Feet With 2 Turns: Minimum Assistance X 1 Ability to Ambulate 150 Feet: Minimum Assistance X 1 Ambulation Assistive Devices: Walker, Wheeled Transfers Ability Ability to Transfer In/Out of Chair: Minimum Assistance X 1 Exam Const: General: cooperative and no acute distress HENMT: Head: normal to inspection Eyes: General: appearance normal, both eyes and all related structures Neck: Neck: full ROM Resp: Effort & Inspection: normal respiratory effort Auscultation: clear to auscultation bilaterally Cardio: Rate: regular rate Rhythm: regular rhythm GI: Auscultation: normal bowel sounds Skin: General skin exam: no rashes or lesions noted Neuro: General: patient oriented x3 and moves all extremities Cranial nerves: Yes Nystagmus not present, Yes Midline tongue present and Yes Symmetric palate elevation present Gait exam (Neuro): Ataxic gait present and Assisted gait required Motor exam (neuro): Abnormal motor strength present Psych: Appearance: grossly normal Objective Data Vital Signs Vital Signs: Vital Signs - 24 hr 04/07/20 14:00 04/07/20 22:00 04/08/20 06:00 Temperature 36.4 C 36.6 C 36.3 C L Pulse Rate 88 66 69 Respiratory Rate 18 18 16 Blood Pressure 122/70 131/75 133/78 Pulse Oximetry 99 99 95 Intake/Output Intake/Output: Intake & Output 04/05/20 04/06/20 04/07/20 04/08/20 23:59 23:59 23:59 23:59 Intake Total 187 940 2764 240 Balance 837 991 8955 240 Meds/Results Medications: Active Medications Generic Name Dose Route Start Last Admin Trade Name Freq PRN Reason Stop Dose Admin Hydrocodone Bitart/Acetaminophen 1 tab 03/27/20 17:06 04/07/20 14:45 [place] 7.5-325 Mg PO 1 tab BID PRN Administration Pain Amlodipine Besylate 10 mg 03/28/20 09:00 04/08/20 08:45 Norvasc PO 10 mg DAILY JOVITA Administration Bisacodyl 5 mg 04/05/20 11:49 Dulcolax Tab PO QAM PRN constipation Clopidogrel Bisulfate 75 mg 03/28/20 09:00 04/08/20 08:45 Plavix PO 75 mg DAILY JOVITA Administration Cyclobenzaprine HCl 5 mg 04/04/20 08:31 04/04/20 09:06 Flexeril PO 5 mg QID PRN Administration Muscle Spasm Dextrose 12.5 gm 03/27/20 16:32 Dextrose 50% Syringe IV PUSH PRN PRN Hypoglycemia Protocol Fluticasone Propionate 1 spray 03/29/20 10:56 Flonase 0.05% Nasal [place] NASAL DAILY PRN seasonal allergies Furosemide 40 mg 03/28/20 09:00 04/08/20 08:45 Lasix Tablet PO 40 mg DAILY JOVITA Administration Glucagon 1 mg 03/27/20 16:32 Glucagon For Inj IM PRN PRN Hypoglycemia Protocol Glucose 15 gm 03/27/20 16:32 Glutose 15 PO PRN PRN Hypoglycemia Protocol Dextrose 1,000 mls @ 100 mls/hr 03/27/20 16:32 Dextrose 5% 1,000 Ml IVPB PRN PRN Hypoglycemia Protocol Insulin Detemir 25 units 03/27/20 21:00 04/08/20 08:48 Levemir SUB-Q 25 units Q12HR JOVITA Administration Loratadine 10 mg 03/28/20 09:00 04/08/20 08:46 Claritin PO 10 mg QAM JOVITA Administration Metformin HCl 1,000 mg 03/29/20 08:00 04/08/20 08:45 Glucophage Xr PO 1,000 mg DAILY@0800 JOVITA Administration Methotrexate 20 mg 04/01/20 09:00 04/08/20 08:44 Methotrexate Tab (*Chemo) PO 20 mg Mo@0900 JOVITA Administration Montelukast Sodium 10 mg 04/05/20 01:25 Singulair PO HS PRN Nasal Congestion Pregabalin 50 mg 03/27/20 17:00 04/08/20 08:46 Lyrica PO 50 mg TID JOVITA Administration Rosuvastatin Calcium 40 mg 03/28/20 09:00 04/08/20 08:45 Crestor PO 40 mg DAILY JOVITA Administration Senna 8.6 mg 04/05/20 21:00 04/07/20 21:1
--- NOTE | 2020-04-08 12:47 | PCDIET ---
Nutrition Follow-Up Complete: Nutrition Diagnosis: Altered nutrition related labs related to diabetes mellitus as evidenced by HgbA1C of 14%. Nutrition Goal: Patient will continue to consume 75% of meals or greater. Goal met. Patient consuming 75-100% of meals on diabetic diet. Recommend addition of heart healthy diet half-way to promote cardiovascular health. Last recorded weight is 102.6 kg. Recommend obtaining new weight. Bowel Motility: Last documented BM on 04/07/20. Labs Reviewed: Glu (77) Meds Noted: Lasix, Glucophage, Senna, Levemir, Methotrexate. Additional Notes: No documented skin breakdown. Spoke with patient via phone due to COVID-19 precautions. Patient reports good appetite and denies concerns. Nutrition Monitoring and Evaluation: Follow up in 7 days.
[2020-04-08 14:00] VITALS: BP 129/61; PULSE 86; RESP 20; TEMP 36.2; O2SAT 98
--- NOTE | 2020-04-08 15:27 | PCPTNOTE ---
Patrick Garcia was evaluated for a wheeled walker on 04/08/2020 by this physical therapist. The wheeled walker will resolve patient's mobility limitations and will be used for ADL's within the home. The patient can safely use the wheeled walker. ?The wheeled walker will resolve the patient?s mobility deficits, including transfers, gait and ADL's safety. Rahel Jones PT
[2020-04-08] MEDS: SENNOSIDES 8.6 MG TABLET PO (20:21)
[2020-04-08 21:23] LABS: Glucose Point of Care 197 (65-105)
[2020-04-08 22:00] VITALS: BP 113/59; PULSE 78; RESP 18; TEMP 36.8; O2SAT 97
[2020-04-09 06:00] VITALS: BP 126/66; PULSE 66; RESP 18; TEMP 36.4; O2SAT 97
[2020-04-09 06:26] LABS: Glucose Point of Care 93 (65-105)
[2020-04-09] MEDS: INSULIN DETEMIR 100 UNITS/ML 25 UNITS SUB-Q ×2 (07:21→20:40)
[2020-04-09] MEDS: SPIRONOLACTONE 25 MG TABLET PO (08:56)
[2020-04-09] MEDS: LORATADINE 10 MG TABLET PO (08:56)
[2020-04-09] MEDS: metFORMIN HCL XR 500 MG TAB.SR.24H 1000 MG PO (08:56)
[2020-04-09] MEDS: AMLODIPINE BESYLATE 5 MG TABLET 10 MG PO (08:56)
[2020-04-09] MEDS: FUROSEMIDE 40 MG TABLET PO (08:56)
[2020-04-09] MEDS: ROSUVASTATIN 10 MG TABLET 40 MG PO (08:56)
[2020-04-09] MEDS: CLOPIDOGREL BISULFATE 75 MG TABLET PO (08:56)
[2020-04-09] MEDS: PREGABALIN 50 MG CAPSULE PO ×3 (08:57→17:43)
--- NOTE | 2020-04-09 13:24 | WPDNEURORHBP ---
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 he is doing fairly well and moving forward doing remarkably Review of Systems Review of Systems: All systems reviewed & are unremarkable except as noted in HPI and below Functional Status Ambulation Ability Ability to Ambulate 10 Feet: Contact Guard Ability to Ambulate 50 Feet With 2 Turns: Contact Guard Ability to Ambulate 150 Feet: Contact Guard Ambulation Assistive Devices: Walker, Wheeled Transfers Ability Ability to Transfer In/Out of Chair: Minimum Assistance X 1 Exam Const: General: comfortable and no acute distress HENMT: General nose exam: Normal nares present Mouth: Yes moist mucous membranes Eyes: General: appearance normal, both eyes and all related structures Neck: Neck: supple and no JVD Resp: Effort & Inspection: normal respiratory effort Auscultation: clear to auscultation bilaterally Cardio: Rate: regular rate Rhythm: regular rhythm GI: GI Palp: Yes Soft to palpation Auscultation: normal bowel sounds Skin: General skin exam: normal color and no rashes or lesions noted Neuro: Other: He is awake alert well oriented time place and person right-sided hemiparesis improving is doing much better Extrem: General: normal to inspection Objective Data Vital Signs Vital Signs: Vital Signs - 24 hr 04/08/20 14:00 04/08/20 22:00 04/09/20 06:00 Temperature 36.2 C L 36.8 C 36.4 C Pulse Rate 86 78 66 Respiratory Rate 20 18 18 Blood Pressure 129/61 113/59 L 126/66 Pulse Oximetry 98 97 97 Intake/Output Intake/Output: Intake & Output 04/06/20 04/07/20 04/08/20 04/09/20 23:59 23:59 23:59 23:59 Intake Total 720 1440 960 480 Balance 720 1440 960 480 Meds/Results Medications: Active Medications Generic Name Dose Route Start Last Admin Trade Name Freq PRN Reason Stop Dose Admin Hydrocodone Bitart/Acetaminophen 1 tab 03/27/20 17:06 04/08/20 18:24 [place] 7.5-325 Mg PO 1 tab BID PRN Administration Pain Amlodipine Besylate 10 mg 03/28/20 09:00 04/09/20 08:56 Norvasc PO 10 mg DAILY JOVITA Administration Bisacodyl 5 mg 04/05/20 11:49 Dulcolax Tab PO QAM PRN constipation Clopidogrel Bisulfate 75 mg 03/28/20 09:00 04/09/20 08:56 Plavix PO 75 mg DAILY JOVITA Administration Cyclobenzaprine HCl 5 mg 04/04/20 08:31 04/04/20 09:06 Flexeril PO 5 mg QID PRN Administration Muscle Spasm Dextrose 12.5 gm 03/27/20 16:32 Dextrose 50% Syringe IV PUSH PRN PRN Hypoglycemia Protocol Fluticasone Propionate 1 spray 03/29/20 10:56 Flonase 0.05% Nasal [place] NASAL DAILY PRN seasonal allergies Furosemide 40 mg 03/28/20 09:00 04/09/20 08:56 Lasix Tablet PO 40 mg DAILY JOVITA Administration Glucagon 1 mg 03/27/20 16:32 Glucagon For Inj IM PRN PRN Hypoglycemia Protocol Glucose 15 gm 03/27/20 16:32 Glutose 15 PO PRN PRN Hypoglycemia Protocol Dextrose 1,000 mls @ 100 mls/hr 03/27/20 16:32 Dextrose 5% 1,000 Ml IVPB PRN PRN Hypoglycemia Protocol Insulin Detemir 25 units 03/27/20 21:00 04/09/20 07:21 Levemir SUB-Q 25 units Q12HR JOVITA Administration Loratadine 10 mg 03/28/20 09:00 04/09/20 08:56 Claritin PO 10 mg QAM JOVITA Administration Metformin HCl 1,000 mg 03/29/20 08:00 04/09/20 08:56 Glucophage Xr PO 1,000 mg DAILY@0800 JOVITA Administration Methotrexate 20 mg 04/01/20 09:00 04/08/20 08:44 Methotrexate Tab (*Chemo) PO 20 mg Mo@0900 JOVITA Administration Montelukast Sodium 10 mg 04/05/20 01:25 Singulair PO HS PRN Nasal Congestion Pregabalin 50 mg 03/27/20 17:00 04/09/20 12:29 Lyrica PO 50 mg TID JOVITA Administration Rosuvastatin Calcium 40 mg 03/28/20 09:00 04/09/20 08:56 Crestor PO 40 mg DAILY JOVITA Administrat
[2020-04-09 14:00] VITALS: BP 134/67; PULSE 84; RESP 20; TEMP 36.6; O2SAT 98
--- NOTE | 2020-04-09 15:29 | PCOTNOTE ---
Mr. Garcia was evaluated for a 3 in 1 commode 04/09/20 by this occupational therapist. Mr. Garcia is limited due to a recent CVA with right hemiparesis, impaired strength and impaired balance. Mr. Garcia is unable to safely complete sit to stand from a standard height toilet and requires bilateral arm rests to maintain balance while completing hygiene on commode as well as an elevated surface for completion of sit to stand from commode. The 3 in 1 commode will resolve the patient's limitation in being able to safely toilet and will be used for toileting within his home. The patient can safely use the 3 in 1 commode as this will allow for safe completion of toileting needs upon return home.
--- NOTE | 2020-04-09 16:32 | PCPTNOTE ---
Khadijah Casey PT completed an inpatient rehab wheelchair evaluation on Patrick Garcia on 04/09/2020. The patient is unable to safely and independently ambulate household distances due to their current impairments. Their diagnosis is CVA and their impairments include decreased strength, decreased endurance, decreased balance, and R hemiparesis of UE/LE. The patient demonstrates significant functional mobility limitations that impair their ability to participate in mobility-related activities of daily living (MRADLs), including toileting, feeding, dressing, grooming, and bathing in the customary locations in the home. These limitations cannot be sufficiently resolved by the use of an appropriately fitted cane or walker. It is recommended that the patient utilize a wheelchair for functional mobility within the home in order to facilitate optimal safety, independence and participation in all MRADL's and adequately access their home environment on a regular basis. The patient's home provides adequate access between rooms, maneuvering space, and surfaces to accommodate the recommended wheelchair. The use of a wheelchair for functional mobility is strongly recommended and the patient is receptive to using the wheelchair. The use of this wheelchair will significantly improve the patient's ability to participate in MRADLS and the patient will use it on a regular basis in the home. This will facilitate optimal safety, independence, and participation. The patient has demonstrated sufficient physical and mental capabilities needed to safely propel a manual wheelchair that is provided in the home during a typical day. Recommended Wheelchair Frame: STANDARD Recommended Wheelchair Size: 18 X 18' Recommended Wheelchair Cushion:STANDARD Wheelchair Leg Recommendations: Bilateral elevating leg rests - Elevating legrests are recommended because the patient has significant edema of the lower extremities that requires an elevating legrest. -Anti-tippers are recommended due to patient demonstrating increased risk for falls. They would benefit from anti-tippers with added safety and stabilization. -Adjustable arm height is recommended because the patient requires an arm height that is different than that which is available using non-adjustable arms. The patient spends at least 2 hours per day in the wheelchair. Khadijah Casey PT, DPT ___5/19/20 Evaluating Therapist Date I agree with and certify that the above recommendation is medically necessary. Referring Physician Date
[2020-04-09 20:00] VITALS: PULSE 80; RESP 18; O2SAT 97
[2020-04-09 20:21] LABS: Glucose Point of Care 184 (65-105)
[2020-04-09 22:00] VITALS: BP 113/62; PULSE 80; RESP 18; TEMP 36.7; O2SAT 97
[2020-04-10 06:00] VITALS: BP 154/80; PULSE 63; RESP 18; TEMP 37.2; O2SAT 100
[2020-04-10] MEDS: CYCLOBENZAPRINE HCL 5 MG TABLET PO ×2 (06:08→20:10)
[2020-04-10 06:52] LABS: Glucose Point of Care 93 (65-105)
[2020-04-10] MEDS: AMLODIPINE BESYLATE 5 MG TABLET 10 MG PO (09:57)
[2020-04-10] MEDS: metFORMIN HCL XR 500 MG TAB.SR.24H 1000 MG PO (09:57)
[2020-04-10] MEDS: FUROSEMIDE 40 MG TABLET PO (09:57)
[2020-04-10] MEDS: CLOPIDOGREL BISULFATE 75 MG TABLET PO (09:57)
[2020-04-10] MEDS: SPIRONOLACTONE 25 MG TABLET PO (09:58)
[2020-04-10] MEDS: ROSUVASTATIN 10 MG TABLET 40 MG PO (09:58)
[2020-04-10] MEDS: LORATADINE 10 MG TABLET PO (09:58)
[2020-04-10] MEDS: PREGABALIN 50 MG CAPSULE PO ×3 (10:01→17:48)
[2020-04-10] MEDS: INSULIN DETEMIR 100 UNITS/ML 25 UNITS SUB-Q ×2 (10:01→20:14)
[2020-04-10 12:38] LABS: Glucose Point of Care 94 (65-105)
[2020-04-10 14:00] VITALS: BP 148/76; PULSE 73; RESP 20; TEMP 37; O2SAT 95
--- NOTE | 2020-04-10 14:01 | WPDNEURORHBP ---
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 from which he is improving his dizziness lightheadedness has all improved and if he is feeling much better engage in therapy denies any headache nausea vomiting chest pain shortness of breath fever chills sore throat Review of Systems Review of Systems: All systems reviewed & are unremarkable except as noted in HPI and below Functional Status Ambulation Ability Ability to Ambulate 10 Feet: Contact Guard Ability to Ambulate 50 Feet With 2 Turns: Contact Guard Ability to Ambulate 150 Feet: Contact Guard Ambulation Assistive Devices: Walker, Wheeled Transfers Ability Ability to Transfer In/Out of Chair: Minimum Assistance X 1 Exam Const: General: no acute distress and in distress HENMT: General nose exam: Normal nares present Mouth: Yes moist mucous membranes Eyes: General: appearance normal, both eyes and all related structures Neck: Neck: supple and no JVD Resp: Effort & Inspection: normal respiratory effort Auscultation: clear to auscultation bilaterally Cardio: Rate: regular rate Rhythm: regular rhythm GI: GI Palp: Yes Soft to palpation Auscultation: normal bowel sounds Skin: General skin exam: normal color and no rashes or lesions noted Neuro: Other: right-sided improving is very well and able to walk fairly decently of course using the walker Extrem: General: normal to inspection Psych: Mental Status: mental status grossly normal Objective Data Vital Signs Vital Signs: Vital Signs - 24 hr 04/09/20 20:00 04/09/20 22:00 04/10/20 06:00 Temperature 36.7 C 37.2 C Pulse Rate 80 80 63 Respiratory Rate 18 18 18 Blood Pressure 113/62 154/80 H Pulse Oximetry 97 97 100 Intake/Output Intake/Output: Intake & Output 04/07/20 04/08/20 04/09/20 04/10/20 23:59 23:59 23:59 23:59 Intake Total 1440 960 960 240 Balance 1440 960 960 240 Meds/Results Medications: Active Medications Generic Name Dose Route Start Last Admin Trade Name Freq PRN Reason Stop Dose Admin Hydrocodone Bitart/Acetaminophen 1 tab 03/27/20 17:06 04/10/20 06:05 [place] 7.5-325 Mg PO 1 tab BID PRN Administration Pain Amlodipine Besylate 10 mg 03/28/20 09:00 04/10/20 09:57 Norvasc PO 10 mg DAILY JOVITA Administration Bisacodyl 5 mg 04/05/20 11:49 Dulcolax Tab PO QAM PRN constipation Clopidogrel Bisulfate 75 mg 03/28/20 09:00 04/10/20 09:57 Plavix PO 75 mg DAILY JOVITA Administration Cyclobenzaprine HCl 5 mg 04/04/20 08:31 04/10/20 06:08 Flexeril PO 5 mg QID PRN Administration Muscle Spasm Dextrose 12.5 gm 03/27/20 16:32 Dextrose 50% Syringe IV PUSH PRN PRN Hypoglycemia Protocol Fluticasone Propionate 1 spray 03/29/20 10:56 Flonase 0.05% Nasal [place] NASAL DAILY PRN seasonal allergies Furosemide 40 mg 03/28/20 09:00 04/10/20 09:57 Lasix Tablet PO 40 mg DAILY JOVITA Administration Glucagon 1 mg 03/27/20 16:32 Glucagon For Inj IM PRN PRN Hypoglycemia Protocol Glucose 15 gm 03/27/20 16:32 Glutose 15 PO PRN PRN Hypoglycemia Protocol Dextrose 1,000 mls @ 100 mls/hr 03/27/20 16:32 Dextrose 5% 1,000 Ml IVPB PRN PRN Hypoglycemia Protocol Insulin Detemir 25 units 03/27/20 21:00 04/10/20 10:01 Levemir SUB-Q 25 units Q12HR JOVITA Administration Loratadine 10 mg 03/28/20 09:00 04/10/20 09:58 Claritin PO 10 mg QAM JOVITA Administration Metformin HCl 1,000 mg 03/29/20 08:00 04/10/20 09:57 Glucophage Xr PO 1,000 mg DAILY@0800 JOVITA Administration Methotrexate 20 mg 04/01/20 09:00 04/08/20 08:44 Methotrexate Tab (*Chemo) PO 20 mg Mo@0900 JOVITA Administration Montelukast Sodium 10 mg 04/05/20 01:25 Singulair PO HS PRN Nasal [place]
[2020-04-10 20:00] VITALS: PULSE 76; RESP 19; O2SAT 98
[2020-04-10 20:41] LABS: Glucose Point of Care 139 (65-105)
[2020-04-10 22:00] VITALS: BP 115/66; PULSE 76; RESP 19; TEMP 36.6; O2SAT 98
[2020-04-11 05:24] LABS: Blood Urea Nitrogen 36 mg/dL (9-20); Calcium 9.1 mg/dL (8.4-10.2); Carbon Dioxide 33 mmol/L (22-30); Chloride 101 mmol/L (98-107); Estimated CRCL calculation 52 ml/min; Estimated Glomerular Filt Rate 57; Glucose 67 mg/dL (75-110); Potassium 3.7 mmol/L (3.4-5.0); Sodium 139 mmol/L (137-145)
[2020-04-11 05:44] LABS: Glucose Point of Care 84 (65-105)
[2020-04-11 06:00] VITALS: BP 146/66; PULSE 61; RESP 18; TEMP 36.5; O2SAT 99
[2020-04-11 06:10] LABS: Basophils Percent Auto 0.7 % (0.2-1.2); Eosinophils Absolute Auto 0.2 K/mm3 (0-0.3); Eosinophils Percent Auto 4.3 % (0-4.4); Hematocrit 45.8 % (42.0-52.0); Hemoglobin 14.5 g/dL (14.0-18.0); Immature Granulocyte Absolute 0.01 K/mm3 (0.00-0.031); Immature Granulocyte Percent A 0.2 % (0-0.5); Lymphocytes Absolute Auto 0.92 K/mm3 (0.9-3.2); Lymphocytes Percent Auto 22.2 % (18.3-44.2); Mean Corpuscular HGB Conc 31.7 g/dl (32-36); Mean Corpuscular Hemoglobin 26.1 pg (26-34); Mean Corpuscular Volume 82.5 fl (80-100); Mean Platelet Volume 9.4 fl (7.4-10.4); Monocytes Absolute Auto 0.5 K/mm3 (0.1-0.6); Monocytes Percent Auto 12.3 % (2.6-8.5); Neutrophils Absolute Auto 2.5 K/mm3 (1.3-6.7); Neutrophils Percent Auto 60.3 % (45.5-73.1); Platelet Count Result 139 k/mm3 (150-375); Red Blood Count 5.55 M/mm3 (4.6-6.20); Red Cell Distribution Width 13.3 % (11.5-14.5); White Blood Count 4.2 K/mm3 (4.5-10.0)
[2020-04-11] MEDS: metFORMIN HCL XR 500 MG TAB.SR.24H 1000 MG PO (09:26)
[2020-04-11] MEDS: ROSUVASTATIN 10 MG TABLET 40 MG PO (09:27)
[2020-04-11] MEDS: CLOPIDOGREL BISULFATE 75 MG TABLET PO (09:27)
[2020-04-11] MEDS: LORATADINE 10 MG TABLET PO (09:27)
[2020-04-11] MEDS: AMLODIPINE BESYLATE 5 MG TABLET 10 MG PO (09:27)
[2020-04-11] MEDS: FUROSEMIDE 40 MG TABLET PO (09:27)
[2020-04-11] MEDS: SPIRONOLACTONE 25 MG TABLET PO (09:28)
[2020-04-11] MEDS: INSULIN DETEMIR 100 UNITS/ML 25 UNITS SUB-Q ×2 (09:34→21:26)
[2020-04-11] MEDS: PREGABALIN 50 MG CAPSULE PO ×3 (09:34→18:37)
[2020-04-11 12:57] LABS: Glucose Point of Care 88 (65-105)
[2020-04-11 14:00] VITALS: BP 136/77; PULSE 96; RESP 18; TEMP 36.7; O2SAT 100
--- NOTE | 2020-04-11 14:04 | WPDNEURORHBP ---
Subjective Date/time seen: 04/11/20 14:04 Interval history: this 65-year-old woman is here after having had the brainstem stroke which left him with right-sided hemiparesis from which he is improving quite well and doing remarkably well denies any headache nausea vomiting chest pain shortness of breath fever chills or sore throat Review of Systems Review of Systems: All systems reviewed & are unremarkable except as noted in HPI and below Functional Status Ambulation Ability Ability to Ambulate 10 Feet: Standby Assistance Ability to Ambulate 50 Feet With 2 Turns: Standby Assistance Ability to Ambulate 150 Feet: Contact Guard Ambulation Assistive Devices: Walker, Wheeled Transfers Ability Ability to Transfer In/Out of Chair: Minimum Assistance X 1 Exam Const: General: comfortable and no acute distress HENMT: General nose exam: Normal nares present Mouth: Yes moist mucous membranes Eyes: General: appearance normal, both eyes and all related structures Neck: Neck: supple and no JVD Resp: Effort & Inspection: normal respiratory effort Auscultation: clear to auscultation bilaterally Cardio: Rate: regular rate Rhythm: regular rhythm GI: GI Palp: Yes Soft to palpation Auscultation: normal bowel sounds Skin: General skin exam: normal color and no rashes or lesions noted Neuro: Other: normal mental status examination normal speech and language function has significantly improved right-sided hemiparesis Extrem: General: normal to inspection Psych: Mental Status: mental status grossly normal Objective Data Vital Signs Vital Signs: Vital Signs - 24 hr 04/11/20 22:00 04/12/20 06:00 Temperature 37.2 C 36.8 C Pulse Rate 76 67 Respiratory Rate 19 18 Blood Pressure 124/68 122/74 Pulse Oximetry 99 98 Intake/Output Intake/Output: Intake & Output 04/09/20 04/10/20 04/11/20 04/12/20 23:59 23:59 23:59 23:59 Intake Total 903 245 6349 120 Balance 008 053 6151 120 Meds/Results Medications: Active Medications Generic Name Dose Route Start Last Admin Trade Name Freq PRN Reason Stop Dose Admin Hydrocodone Bitart/Acetaminophen 1 tab 03/27/20 17:06 04/12/20 08:44 [place] 7.5-325 Mg PO 1 tab BID PRN Administration Pain Amlodipine Besylate 10 mg 03/28/20 09:00 04/12/20 08:51 Norvasc PO 10 mg DAILY JOVITA Administration Bisacodyl 5 mg 04/05/20 11:49 Dulcolax Tab PO QAM PRN constipation Clopidogrel Bisulfate 75 mg 03/28/20 09:00 04/12/20 08:52 Plavix PO 75 mg DAILY JOVITA Administration Cyclobenzaprine HCl 5 mg 04/04/20 08:31 04/12/20 08:44 Flexeril PO 5 mg QID PRN Administration Muscle Spasm Dextrose 12.5 gm 03/27/20 16:32 Dextrose 50% Syringe IV PUSH PRN PRN Hypoglycemia Protocol Fluticasone Propionate 1 spray 03/29/20 10:56 Flonase 0.05% Nasal [place] NASAL DAILY PRN seasonal allergies Furosemide 40 mg 03/28/20 09:00 04/12/20 08:53 Lasix Tablet PO 40 mg DAILY JOVITA Administration Glucagon 1 mg 03/27/20 16:32 Glucagon For Inj IM PRN PRN Hypoglycemia Protocol Glucose 15 gm 03/27/20 16:32 Glutose 15 PO PRN PRN Hypoglycemia Protocol Dextrose 1,000 mls @ 100 mls/hr 03/27/20 16:32 Dextrose 5% 1,000 Ml IVPB PRN PRN Hypoglycemia Protocol Insulin Detemir 25 units 03/27/20 21:00 04/12/20 08:49 Levemir SUB-Q 25 units Q12HR JOVITA Administration Loratadine 10 mg 03/28/20 09:00 04/12/20 08:52 Claritin PO 10 mg QAM JOVITA Administration Metformin HCl 1,000 mg 03/29/20 08:00 04/12/20 08:51 Glucophage Xr PO 1,000 mg DAILY@0800 JOVITA Administration Methotrexate 20 mg 04/01/20 09:00 04/08/20 08:44 Methotrexate Tab (*Chemo) PO 20 mg Mo@0900 JOVITA Administration Montelukast Sodium 10 mg 04/05/20 01:25 Singulair PO HS PRN Nasal Congestion Pregabalin 50 mg 03/27/20 17:00 04/12/20 11:56
[2020-04-11 22:00] VITALS: BP 124/68; PULSE 76; RESP 19; TEMP 37.2; O2SAT 99
[2020-04-12 03:28] LABS: Glucose Point of Care 159 (65-105)
[2020-04-12 06:00] VITALS: BP 122/74; PULSE 67; RESP 18; TEMP 36.8; O2SAT 98
[2020-04-12 06:36] LABS: Glucose Point of Care 136 (65-105)
[2020-04-12] MEDS: CYCLOBENZAPRINE HCL 5 MG TABLET PO (08:44)
[2020-04-12] MEDS: INSULIN DETEMIR 100 UNITS/ML 25 UNITS SUB-Q ×2 (08:49→21:22)
[2020-04-12] MEDS: metFORMIN HCL XR 500 MG TAB.SR.24H 1000 MG PO (08:51)
[2020-04-12] MEDS: AMLODIPINE BESYLATE 5 MG TABLET 10 MG PO (08:51)
[2020-04-12] MEDS: LORATADINE 10 MG TABLET PO (08:52)
[2020-04-12] MEDS: CLOPIDOGREL BISULFATE 75 MG TABLET PO (08:52)
[2020-04-12] MEDS: SPIRONOLACTONE 25 MG TABLET PO (08:52)
[2020-04-12] MEDS: FUROSEMIDE 40 MG TABLET PO (08:53)
[2020-04-12] MEDS: ROSUVASTATIN 10 MG TABLET 40 MG PO (08:53)
--- NOTE | 2020-04-12 09:37 | PCDIET ---
Nutrition Follow-Up Complete: Nutrition Diagnosis: Altered nutrition related labs related to diabetes mellitus as evidenced by HgbA1C of 14%. Nutrition Goal: Patient will continue to consume 75% of meals or greater. Goal met. Patient consuming 75-100% of meals on diabetic diet which is appropriate with addition of heart healthy component fci. Last recorded weight is 102.6 kg. Recommend obtaining new weight. Bowel Motility: Last documented BM on 04/09/20. Labs Reviewed: Glu (136), BUN (36), Cr (1.5) Meds Noted: Lasix, Levemir, Glucophage, Methotrexate, Senna Additional Notes: No documented skin breakdown. Will continue to monitor with same goal. Nutrition Monitoring and Evaluation: Follow up in 7 days.
[2020-04-12] MEDS: PREGABALIN 50 MG CAPSULE PO ×3 (11:56→19:01)
[2020-04-12 12:39] LABS: Glucose Point of Care 74 (65-105)
[2020-04-12 14:00] VITALS: BP 117/71; PULSE 84; RESP 18; TEMP 36.4; O2SAT 100
--- NOTE | 2020-04-12 16:20 | WPDNEURORHBP ---
Subjective Date/time seen: 04/12/20 16:20 Interval history: this 65-year-old gentleman is here after having an brainstem stroke his doing fairly well and right-sided hemiparesis has improved he denies any headache nausea vomiting chest pain or shortness of breath he is some spasm on the right side of the body which is related to the spasticity he is developing post stroke Review of Systems Review of Systems: All systems reviewed & are unremarkable except as noted in HPI and below Functional Status Ambulation Ability Ability to Ambulate 10 Feet: Standby Assistance Ability to Ambulate 50 Feet With 2 Turns: Standby Assistance Ability to Ambulate 150 Feet: Contact Guard Ambulation Assistive Devices: Walker, Wheeled Transfers Ability Ability to Transfer In/Out of Chair: Minimum Assistance X 1 Exam Const: General: comfortable and no acute distress HENMT: General nose exam: Normal nares present Mouth: Yes moist mucous membranes Eyes: General: appearance normal, both eyes and all related structures Neck: Neck: supple and no JVD Resp: Effort & Inspection: normal respiratory effort Auscultation: clear to auscultation bilaterally Cardio: Rate: regular rate Rhythm: regular rhythm GI: GI Palp: Yes Soft to palpation Auscultation: normal bowel sounds Skin: General skin exam: normal color and no rashes or lesions noted Neuro: Other: patient is awake alert well oriented time place person is speech and language functions are normal right-sided hemiparesis is improving and he has done remarkably well in over rehab Extrem: General: normal to inspection Psych: Mental Status: mental status grossly normal Objective Data Vital Signs Vital Signs: Vital Signs - 24 hr 04/11/20 22:00 04/12/20 06:00 04/12/20 14:00 Temperature 37.2 C 36.8 C 36.4 C Pulse Rate 76 67 84 Respiratory Rate 19 18 18 Blood Pressure 124/68 122/74 117/71 Pulse Oximetry 99 98 100 Intake/Output Intake/Output: Intake & Output 04/09/20 04/10/20 04/11/20 04/12/20 23:59 23:59 23:59 23:59 Intake Total 755 918 5020 480 Balance 440 011 9625 480 Meds/Results Medications: Active Medications Generic Name Dose Route Start Last Admin Trade Name Freq PRN Reason Stop Dose Admin Hydrocodone Bitart/Acetaminophen 1 tab 03/27/20 17:06 04/12/20 08:44 [place] 7.5-325 Mg PO 1 tab BID PRN Administration Pain Amlodipine Besylate 10 mg 03/28/20 09:00 04/12/20 08:51 Norvasc PO 10 mg DAILY JOVITA Administration Bisacodyl 5 mg 04/05/20 11:49 Dulcolax Tab PO QAM PRN constipation Clopidogrel Bisulfate 75 mg 03/28/20 09:00 04/12/20 08:52 Plavix PO 75 mg DAILY JOVITA Administration Cyclobenzaprine HCl 5 mg 04/04/20 08:31 04/12/20 08:44 Flexeril PO 5 mg QID PRN Administration Muscle Spasm Dextrose 12.5 gm 03/27/20 16:32 Dextrose 50% Syringe IV PUSH PRN PRN Hypoglycemia Protocol Fluticasone Propionate 1 spray 03/29/20 10:56 Flonase 0.05% Nasal [place] NASAL DAILY PRN seasonal allergies Furosemide 40 mg 03/28/20 09:00 04/12/20 08:53 Lasix Tablet PO 40 mg DAILY JOVITA Administration Glucagon 1 mg 03/27/20 16:32 Glucagon For Inj IM PRN PRN Hypoglycemia Protocol Glucose 15 gm 03/27/20 16:32 Glutose 15 PO PRN PRN Hypoglycemia Protocol Dextrose 1,000 mls @ 100 mls/hr 03/27/20 16:32 Dextrose 5% 1,000 Ml IVPB PRN PRN Hypoglycemia Protocol Insulin Detemir 25 units 03/27/20 21:00 04/12/20 08:49 Levemir SUB-Q 25 units Q12HR JOVITA Administration Loratadine 10 mg 03/28/20 09:00 04/12/20 08:52 Claritin PO 10 mg QAM JOVITA Administration Metformin HCl 1,000 mg 03/29/20 08:00 04/12/20 08:51 Glucophage Xr PO 1,000 mg DAILY@0800 JOVITA Administration Methotrexate 20 mg 04/01/20 09:00 04/08/20 08:44 Methotrexate Tab (*Chemo) PO 20 mg Mo@0900 JOVITA Administration Richard
[2020-04-12 16:55] LABS: Glucose Point of Care 98 (65-105)
[2020-04-12 21:25] LABS: Glucose Point of Care 223 (65-105)
[2020-04-12 22:00] VITALS: BP 121/59; PULSE 77; RESP 18; TEMP 37.6; O2SAT 97
[2020-04-13 06:00] VITALS: BP 127/68; PULSE 63; RESP 18; TEMP 36.4; O2SAT 100
[2020-04-13 06:50] LABS: Glucose Point of Care 148 (65-105)
[2020-04-13] MEDS: ROSUVASTATIN 10 MG TABLET 40 MG PO (08:24)
[2020-04-13] MEDS: metFORMIN HCL XR 500 MG TAB.SR.24H 1000 MG PO (08:25)
[2020-04-13] MEDS: LORATADINE 10 MG TABLET PO (08:25)
[2020-04-13] MEDS: CLOPIDOGREL BISULFATE 75 MG TABLET PO (08:25)
[2020-04-13] MEDS: FUROSEMIDE 40 MG TABLET PO (08:25)
[2020-04-13] MEDS: SPIRONOLACTONE 25 MG TABLET PO (08:25)
[2020-04-13] MEDS: AMLODIPINE BESYLATE 5 MG TABLET 10 MG PO (08:25)
[2020-04-13] MEDS: PREGABALIN 50 MG CAPSULE PO ×3 (08:25→17:02)
[2020-04-13] MEDS: INSULIN DETEMIR 100 UNITS/ML 25 UNITS SUB-Q ×2 (09:22→20:08)
--- NOTE | 2020-04-13 12:42 | WPDNEURORHBP ---
Subjective Date/time seen: S/PBrainstem stroke with right hemiparesis and [id number]/23/20 12:42 Review of Systems Review of Systems: All systems reviewed & are unremarkable except as noted in HPI and below Functional Status Ambulation Ability Ability to Ambulate 10 Feet: Standby Assistance Ability to Ambulate 50 Feet With 2 Turns: Standby Assistance Ability to Ambulate 150 Feet: Contact Guard Ambulation Assistive Devices: Walker, Wheeled Transfers Ability Ability to Transfer In/Out of Chair: Minimum Assistance X 1 Exam Const: Orientation/consciousness: patient oriented x3 HENMT: General nose exam: No nasal discharge present Mouth: Yes Normal oral and palatal mucosa present Eyes: General: appearance normal, both eyes and all related structures Neck: Neck: full ROM Resp: Effort & Inspection: normal respiratory effort Auscultation: clear to auscultation bilaterally Cardio: Rate: regular rate Rhythm: regular rhythm GI: Auscultation: normal bowel sounds Skin: General skin exam: no rashes or lesions noted Neuro: General: patient oriented x3 Cognition (Neuro): normal cognition Motor exam (neuro): Abnormal motor strength present Psych: Appearance: grossly normal Objective Data Vital Signs Vital Signs: Vital Signs - 24 hr 04/12/20 14:00 04/12/20 22:00 04/13/20 06:00 Temperature 36.4 C 37.6 C 36.4 C L Pulse Rate 84 77 63 Respiratory Rate 18 18 18 Blood Pressure 117/71 121/59 L 127/68 Pulse Oximetry 100 97 100 Intake/Output Intake/Output: Intake & Output 04/10/20 04/11/20 04/12/20 04/13/20 23:59 23:59 23:59 23:59 Intake Total 720 1200 960 240 Balance 720 1200 960 240 Meds/Results Medications: Active Medications Generic Name Dose Route Start Last Admin Trade Name Freq PRN Reason Stop Dose Admin Hydrocodone Bitart/Acetaminophen 1 tab 03/27/20 17:06 04/12/20 08:44 [place] 7.5-325 Mg PO 1 tab BID PRN Administration Pain Amlodipine Besylate 10 mg 03/28/20 09:00 04/13/20 08:25 Norvasc PO 10 mg DAILY JOVITA Administration Bisacodyl 5 mg 04/05/20 11:49 Dulcolax Tab PO QAM PRN constipation Clopidogrel Bisulfate 75 mg 03/28/20 09:00 04/13/20 08:25 Plavix PO 75 mg DAILY JOVITA Administration Cyclobenzaprine HCl 5 mg 04/04/20 08:31 04/12/20 08:44 Flexeril PO 5 mg QID PRN Administration Muscle Spasm Dextrose 12.5 gm 03/27/20 16:32 Dextrose 50% Syringe IV PUSH PRN PRN Hypoglycemia Protocol Fluticasone Propionate 1 spray 03/29/20 10:56 Flonase 0.05% Nasal [place] NASAL DAILY PRN seasonal allergies Furosemide 40 mg 03/28/20 09:00 04/13/20 08:25 Lasix Tablet PO 40 mg DAILY JOVITA Administration Glucagon 1 mg 03/27/20 16:32 Glucagon For Inj IM PRN PRN Hypoglycemia Protocol Glucose 15 gm 03/27/20 16:32 Glutose 15 PO PRN PRN Hypoglycemia Protocol Dextrose 1,000 mls @ 100 mls/hr 03/27/20 16:32 Dextrose 5% 1,000 Ml IVPB PRN PRN Hypoglycemia Protocol Insulin Detemir 25 units 03/27/20 21:00 04/13/20 09:22 Levemir SUB-Q 25 units Q12HR JOVITA Administration Loratadine 10 mg 03/28/20 09:00 04/13/20 08:25 Claritin PO 10 mg QAM JOVITA Administration Metformin HCl 1,000 mg 03/29/20 08:00 04/13/20 08:25 Glucophage Xr PO 1,000 mg DAILY@0800 JOVITA Administration Methotrexate 20 mg 04/01/20 09:00 04/08/20 08:44 Methotrexate Tab (*Chemo) PO 20 mg Mo@0900 JOVITA Administration Montelukast Sodium 10 mg 04/05/20 01:25 Singulair PO HS PRN Nasal Congestion Pregabalin 50 mg 03/27/20 17:00 04/13/20 12:17 Lyrica PO 50 mg TID JOVITA Administration Rosuvastatin Calcium 40 mg 03/28/20 09:00 04/13/20 08:24 Crestor PO 40 mg DAILY JOVITA Administration Senna 8.6 mg 04/05/20 21:00 04/12/20 20:46 Senokot Tablet PO Not Given HS JOVITA Spironolactone 25 mg 03/28/20 09:
[2020-04-13 14:00] VITALS: BP 138/68; PULSE 76; RESP 20; TEMP 36.6; O2SAT 100
[2020-04-13 20:26] LABS: Glucose Point of Care 212 (65-105)
[2020-04-13 22:00] VITALS: BP 126/60; PULSE 75; RESP 18; TEMP 37.3; O2SAT 96
[2020-04-14 06:00] VITALS: BP 135/66; PULSE 60; RESP 16; TEMP 36.4; O2SAT 100
[2020-04-14 06:26] LABS: Glucose Point of Care 83 (65-105)
[2020-04-14] MEDS: CLOPIDOGREL BISULFATE 75 MG TABLET PO (08:36)
[2020-04-14] MEDS: PREGABALIN 50 MG CAPSULE PO ×2 (08:36→13:16)
[2020-04-14] MEDS: ROSUVASTATIN 10 MG TABLET 40 MG PO (08:36)
[2020-04-14] MEDS: metFORMIN HCL XR 500 MG TAB.SR.24H 1000 MG PO (08:36)
[2020-04-14] MEDS: AMLODIPINE BESYLATE 5 MG TABLET 10 MG PO (08:37)
[2020-04-14] MEDS: FUROSEMIDE 40 MG TABLET PO (08:37)
[2020-04-14] MEDS: SPIRONOLACTONE 25 MG TABLET PO (08:37)
[2020-04-14] MEDS: LORATADINE 10 MG TABLET PO (08:37)
[2020-04-14] MEDS: INSULIN DETEMIR 100 UNITS/ML 25 UNITS SUB-Q (08:38)
--- NOTE | 2020-04-19 09:41 | DS_ITS ---
DATE OF DISCHARGE: 04/14/2020 DISCHARGE ACUTE REHAB DIAGNOSIS: Primary rehab impairment category of stroke with etiological diagnosis of acute left pontine infarction. DISCHARGE ACTIVE COMORBID CONDITIONS: 1. Coronary artery disease. 2. Hypertension. 3. Diabetes mellitus. 4. Obstructive sleep apnea. 5. Rheumatoid arthritis. 6. Chronic tension headaches. REASON FOR ADMISSION: A 65-year-old, right handed male with past medical history of multiple problem as mentioned above, presented to [facility] on 03/22/2020, with the complaints of dizziness, imbalance, slurred speech, and dysphagia of 48 hours duration. The patient had already been taking Plavix and statin. He was allergic to aspirin. His medications were continued as such and further testing was ordered. In addition to Neurology consultation, initial CT scan of 03/22 revealed no intracranial process. Hemoglobin A1c was 13. Repeat CT scan on 03/24/2020, documented left paramedian pontine acute infarct. 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 He was to follow with the primary care physician to address the new thyroid nodule. There was no high-grade carotid stenosis on the Doppler study. Ejection fraction was 58% on echocardiogram with no intramural thrombus, PFO, or vegetation. He was started on Plavix and statin and evaluated by the PT and OT, and speech. He was to be seen by the vascular surgeon within next 3 weeks. High blood pressure medication was decreased to allow the better perfusion with high blood pressure. He continued to have impaired balance, decreased gross motor control, and right hemiparesis. He passed the swallowing study and continued regular consistency diet and was discharged to the rehab on Lovenox for DVT prophylaxis. LEVEL OF FUNCTION AT THE TIME OF ADMISSION: He required setup for the eating, oral hygiene; substantial assistance for toileting, bathing, upper body dressing, lower body dressing, footwear, rolling in bed, sit to lying, lying to sit, chair transfer, and toilet transfer. Partial assistance for sit to stand. He was unable to car transfer, was dependent for walking 10 feet. He was unable to walk 50 feet with 2 turns, 150 feet, 10 feet on uneven surfaces, curb or step, 4 steps, 12 steps, picking up object and also wheelchair for 50 feet, required supervision for the wheelchair for 50 feet. ANTICIPATED REHAB GOALS: At the time of admission were to make him independent in all the modalities except requiring supervision for bathing, setup for the upper body dressing, and the lower body dressing, and also the footwear. LEVEL OF FUNCTION AT THE TIME OF DISCHARGE: He became independent eating, oral hygiene, required setup for the toileting, supervision for bathing, became independent in upper body dressing, required supervision for lower body dressing, became independent in footwear, rolling in bed, sit to lying, lying to sit, setup for the sit to stand. He required supervision for all other modalities except he became independent for the wheelchair. HOSPITAL COURSE: During the hospitalization, he was involved in the physical therapy and occupational therapy on a regular basis. He was not seen by any other consultants. At the time of discharge, he was able to ambulate 10 feet with standby assistance, 50 feet with 2 turns with standby assistance, 150 feet with contact guard in a wheeled walker. He was able to transfer in and out of chair with minimum assistance of 1. General physical examination remained stable. Neurological examination was improving. His vital signs were also normal with blood pressure of 127/68. DISCHARGE INSTRUCTIONS: He could shower. Instructed not to drive. Follow the
== END 2020-04-14 13:50 | disposition home health service (06) | DRG 57 ==
PROVIDERS: Admitting Provider Psychiatry & Neurology Neurology; Visit Provider Psychiatry & Neurology Neurology
DX: I69.351 Hemiplegia and hemiparesis following cerebral infarction affecting right dominant side (principal); I69.322 Dysarthria following cerebral infarction; I69.392 Facial weakness following cerebral infarction; E04.1 Nontoxic single thyroid nodule; E78.5 Hyperlipidemia, unspecified; E11.42 Type 2 diabetes mellitus with diabetic polyneuropathy; E11.65 Type 2 diabetes mellitus with hyperglycemia; G47.33 Obstructive sleep apnea (adult) (pediatric); I25.10 Atherosclerotic heart disease of native coronary artery without angina pectoris; I65.1 Occlusion and stenosis of basilar artery; I50.9 Heart failure, unspecified; I11.0 Hypertensive heart disease with heart failure; M06.9 Rheumatoid arthritis, unspecified; R79.89 Other specified abnormal findings of blood chemistry; Z79.4 Long term (current) use of insulin; Z79.02 Long term (current) use of antithrombotics/antiplatelets
CPT/HCPCS: 36415; 80048; 80061; 83036; 85025; 97110; 97112; 97116; 97162; 97166; 97530; 97535; 97542; A9270; J1650; J1815